=== PATIENT | male | born 1960 | race Caucasian/White ===

== ENCOUNTER 2017-08-29 08:00 | Inpatient (IN) | payer OTHER ==
[2017-08-23 12:15] VITALS: BMI 28.2
[2017-08-29] MEDS ORDERED: CEFAZOLIN 2 GM in DEXTROSE 5%-WATER - 100 ML IVPB ONE (10:08)
[2017-08-29] MEDS ORDERED: VANCOMYCIN 1,000 MG in DEXTROSE 5%-WATER - 250 ML IVPB ONE (10:08)
[2017-08-29] MEDS ORDERED: CELECOXIB 200 MG CAPSULE PO ONE (10:13)
[2017-08-29] MEDS ORDERED: oxyCODONE HCL 10 MG SUSTAINED ACTING TABLET PO ONE (10:13)
[2017-08-29] MEDS ORDERED: ROPIVICAINE 0.2%/MORPH PF/KETOROLAC - 51ML DISP.SYRINGE IA ONE ×2 (11:09→15:13)
[2017-08-29] MEDS ORDERED: VANCOMYCIN 1,000 MG VIAL (RESTRICTED TO ID ONLY) ONE ×2 (11:09→12:06)
[2017-08-29] MEDS ORDERED: MIDAZOLAM HCL 2 MG/2 ML SINGLE DOSE VIAL ONE (11:23)
[2017-08-29] MEDS ORDERED: PROPOFOL 20 ML ONE ×7 (11:34→14:57)
[2017-08-29] MEDS ORDERED: ceFAZolin SODIUM 1 GM VIAL ONE ×2 (11:48→13:58)
[2017-08-29] MEDS ORDERED: TRANEXAMIC ACID 1000 MG/10 ML VIAL ONE ×2 (11:54→14:44)
[2017-08-29] MEDS ORDERED: DEXAMETHASONE SOD PHOSPHATE 4 MG/1 ML VIAL ONE (12:11)
[2017-08-29] MEDS ORDERED: ONDANSETRON 4 MG/2 ML VIAL ONE (12:11)
[2017-08-29] MEDS ORDERED: ePHEDrine SULFATE 50 MG/1 ML AMPULE ONE (12:30)
[2017-08-29 13:43] LABS: HIV 1 & 2 AB NEGATIVE; HIV 1 AGp24 NEGATIVE
[2017-08-29] MEDS ORDERED: VANCOMYCIN 1,000 MG VIAL (RESTRICTED TO ID ONLY) IVPB ONE (14:23)
[2017-08-29] MEDS ORDERED: GUM MASTIC/STORAX/MSAL/ALCOHOL 1 DRP DROPSBTL MC ONE (14:29)
[2017-08-29] MEDS ORDERED: ONDANSETRON 4 MG/2 ML VIAL IVPUSH PRN ×2 (15:20→17:27)
[2017-08-29] MEDS ORDERED: oxyCODONE HCL 5 MG TABLET PO PRN (15:20)
[2017-08-29] MEDS ORDERED: LACTATED RINGERS SOLUTION 1,000 ML IV SCH ×2 (15:30→17:30)
[2017-08-29] MEDS ORDERED: ACETAMINOPHEN 325 MG TABLET (FP) ONE (15:38)
[2017-08-29] MEDS ORDERED: ACETAMINOPHEN 325 MG TABLET (FP) PO ONE (15:55)
--- NOTE | 2017-08-29 17:25 | OP ---
Operative Note - Note: Operative Date: 08/29/17 Pre-Operative Diagnosis: Right hip DJD Operation: Right total hip replacement via Direct Superior approach Implants: [place]. Cup - Trident, 58mm. Poly - 32mm, neutral. Stem - Accolade II, #5, 132 degree. Head - Biolox, 32mm, -4mm Post-Operative Diagnosis: Same as Pre-op Surgeon: Yemi Fowler Regulatory Intern: Nathan Fowler Anesthesiologist/COMMERCIAL RELATIONSHIP MANAGER: Ana Borden Anesthesia: Spinal Specimens Removed: Right femoral head Estimated Blood Loss (mls): 200 Operative Report Dictated: Yes
[2017-08-29] MEDS ORDERED: MAGNESIUM HYDROX 2400MG/30ML ORAL SUSPENSION 30 ML CUP PO PRN (17:27)
[2017-08-29] MEDS ORDERED: VANCOMYCIN 1,500 MG in DEXTROSE 5%-WATER - 500 ML IVPB ONE (17:27)
[2017-08-29] MEDS ORDERED: MAG HYDROX/AL HYDROX/SIMETH 30 ML UNIT-DOSE CUP PO PRN (17:27)
--- NOTE | 2017-08-29 17:27 | PN ---
Progress Note (short form) - Note Progress Note: 57M s/p R ABDI via Direct Superior approach. -Pain control. -DVT PPx: Chemical - ASA EC 81mg PO BID, Mechanical - LEFTY's, SCD's. -Incentive spirometry/pulmonary toilet. -PT/OR/Rehab, OOB. -WBAT RLE. -NO HIP PRECAUTIONS. -Outpatient PT orders: ambulation only; no R hip stretching or strengthening exercises. -f/u TOV. -Diet as tolerated. -d/c planning; OK to d/c home tomorrow with services if patient meets criteria.
[2017-08-29] MEDS ORDERED: CEFAZOLIN 2 GM/D5W 2 GM/50 ML ML IVPB SCH (18:00)
[2017-08-29] MEDS: ACETAMINOPHEN 325 MG TABLET (FP) PO SCH ×2 (19:48→21:21)
[2017-08-29] MEDS: SENNOSIDES/DOCUSATE COMBO (SENNA PLUS) TABLET (UD) PO SCH (21:21)
[2017-08-29] MEDS: CEFAZOLIN 2 GM/D5W 2 GM/50 ML ML IVPB SCH (21:21)
[2017-08-29] MEDS: ASPIRIN COATED 81 MG TABLET.EC PO SCH (21:21)
[2017-08-29] MEDS: oxyCODONE HCL 10 MG SUSTAINED ACTING TABLET PO SCH (21:22)
[2017-08-29] MEDS ORDERED: ASPIRIN 325 MG TABLET PO SCH (22:00)
[2017-08-30] MEDS ORDERED: VANCOMYCIN 1,500 MG in DEXTROSE 5%-WATER - 500 ML IVPB ONE (02:00)
[2017-08-30] MEDS: ACETAMINOPHEN 325 MG TABLET (FP) PO SCH ×4 (04:55→21:58)
[2017-08-30] MEDS: CEFAZOLIN 2 GM/D5W 2 GM/50 ML ML IVPB SCH (05:04)
[2017-08-30] MEDS: oxyCODONE HCL 5 MG TABLET PO PRN ×4 (07:55→22:24)
[2017-08-30 08:56] LABS: ANION GAP 4 (8-16); CALCIUM 9.6 mg/dl (8.4-10.2); CO2 23 mmol/L (22-28); GLUCOSE,RANDOM 116 mg/dl (74-106)
[2017-08-30 08:59] LABS: MCH 29.5 pg (25.7-33.7); MEAN CELL VOLUME 89.4 fl (80-96); MEAN PLT VOLUME 9.5 fl (7.5-11.1); PLATELET COUNT 156 K/MM3 (134-434); RDW 11.7 % (11.9-15.9); WHITE BLOOD COUNT 14.6 K/mm3 (4.0-10.8)
[2017-08-30] MEDS: PANTOPRAZOLE 40 MG TABLET (FP) PO SCH (09:21)
[2017-08-30] MEDS: LISINOPRIL 20 MG TABLET (FP) PO SCH (09:21)
[2017-08-30] MEDS: SENNOSIDES/DOCUSATE COMBO (SENNA PLUS) TABLET (UD) PO SCH ×2 (09:21→21:58)
[2017-08-30] MEDS: MULTIVITAMINS (DAILY MVI) TABLET (FP) PO SCH (09:21)
[2017-08-30] MEDS: ASPIRIN COATED 81 MG TABLET.EC PO SCH ×2 (09:21→21:58)
[2017-08-30] MEDS: oxyCODONE HCL 10 MG SUSTAINED ACTING TABLET PO SCH ×2 (09:23→21:58)
[2017-08-30] MEDS ORDERED: SODIUM CHLORIDE 500 ML IV STA (10:00)
--- NOTE | 2017-08-30 11:18 | PN ---
Progress Note (short form) - Note Progress Note: 57M POD1 s/p right THR under spinal anesthetic with peripheral nerve blocks for pain control. Pt is doing well, reports that his pain is well controlled. Pt denies any anesthetic complications. Sensory and motor function intact in bilateral lower extremities.
--- NOTE | 2017-08-30 13:30 | PN ---
Physical Exam: SUBJECTIVE: Patient seen and examined, reports minimal pain to the right lower extremity OBJECTIVE: patient is a 57 y/o male with a past medical history of hypertension and osteoarthritis. Patient is s/p right THR, POD #1, Dr Fowler Vital Signs Temperature 97.7 F 08/30/17 09:00 Pulse Rate 67 08/30/17 09:00 Respiratory Rate 18 08/30/17 09:00 Blood Pressure 90/64 08/30/17 09:00 O2 Sat by Pulse Oximetry (%) 94 L 08/30/17 09:00 GENERAL: The patient is awake, alert, and fully oriented, in no acute distress. HEAD: Normal with no signs of trauma. EYES: PERRL, extraocular movements intact, sclera anicteric, conjunctiva clear. No ptosis. ENT: Ears normal, nares patent, oropharynx clear without exudates, moist mucous membranes. NECK: Trachea midline, full range of motion, supple. LUNGS: Breath sounds equal, clear to auscultation bilaterally, no wheezes, no crackles, no accessory muscle use. HEART: Regular rate and rhythm, S1, S2 without murmur, rub or gallop. ABDOMEN: Soft, nontender, nondistended, normoactive bowel sounds, no guarding, no rebound, no hepatosplenomegaly, no masses. EXTREMITIES: 2+ pulses, warm, well-perfused, no edema. RIGHT LOWER EXTREMITY: dressing cdi, scd/dimitri less than 3 second capillary refill , + 3 pedal pulse NEUROLOGICAL: Cranial nerves II through XII grossly intact. Normal speech, gait not observed. PSYCH: Normal mood, normal affect. SKIN: Warm, dry, normal turgor, no rashes or lesions noted Laboratory Results - last 24 hr 08/29/17 08/29/17 08/29/17 10:38 11:45 13:36 WBC RBC Hgb Hct MCV MCH MCHC RDW Plt Count MPV Sodium Potassium Chloride Carbon Dioxide Anion Gap BUN Creatinine Random Glucose Calcium HIV 1&2 Antibody Screen Negative HIV P24 Antigen Negative Blood Type O POSITIVE O POSITIVE Antibody Screen Negative 08/30/17 08/30/17 07:30 07:30 WBC 14.6 H RBC 4.07 Hgb 12.0 Hct 36.4 MCV 89.4 MCH 29.5 MCHC 33.0 RDW 11.7 L Plt Count 156 MPV 9.5 Sodium 132 L Potassium 5.9 H Chloride 105 Carbon Dioxide 23 Anion Gap 4 L BUN 19 H Creatinine 1.0 Random Glucose 116 H Calcium 9.6 HIV 1&2 Antibody Screen HIV P24 Antigen Blood Type Antibody Screen Active Medications Generic Name Dose Route Start Last Admin Trade Name Clare PRN Reason Stop Dose Admin Acetaminophen 650 mg 08/29/17 16:00 08/30/17 09:21 Tylenol - PO 09/01/17 15:59 650 mg Q6H PHU Administration Al Hydroxide/Mg Hydroxide 30 ml 08/29/17 17:27 Mylanta Oral Suspension - PO Q4H PRN DYSPEPSIA Aspirin 81 mg 08/29/17 22:00 08/30/17 09:21 Ecotrin - PO 81 mg BID PHU Administration Lisinopril 20 mg 08/30/17 10:00 08/30/17 09:21 Prinivil PO 20 mg DAILY PHU Administration Magnesium Hydroxide 30 ml 08/29/17 17:27 Milk Of Magnesia - PO PRN PRN CONSTIPATION Multivitamins/Minerals/Vitamin C 1 tab 08/30/17 10:00 08/30/17 09:21 Tab-A-Vit - PO 1 tab DAILY PHU Administration Ondansetron HCl 4 mg 08/29/17 17:27 Zofran Injection IVPUSH Q6H PRN NAUSEA Oxycodone HCl 5 mg 08/29/17 15:20 08/30/17 01:16 Roxicodone - PO 5 mg Q3H PRN Administration PAIN LEVEL 1-5 Oxycodone HCl 10 mg 08/29/17 15:20 08/30/17 07:55 Roxicodone - PO 10 mg Q3H PRN Administration PAIN LEVEL 6-10 Oxycodone HCl 10 mg 08/29/17 22:00 08/30/17 09:23 Oxycontin - PO 09/01/17 15:21 10 mg BID PHU Administration Pantoprazole Sodium 40 mg 08/30/17 10:00 08/30/17 09:21 Protonix - PO 40 mg DAILY PHU Administration Senna/Docusate Sodium 1 tablet 08/29/17 22:00 08/30/17 09:21 Pericolace - PO 1 tablet BID PHU Administration ASSESSMENT/PLAN: 1) MS s/p right THR - daily physical therapy - prn pain medication - incentive spiromoter 2) cardiovascular hypertension -hold lisinopril, b/p is labile f/e/n hyperkalemia - potassium elevated, repeat bmp [id number] low sodium diet dispo: requires inpatient admission Visit type - Case Type Case Type: Scheduled Admission - Emergency Emergency Visit: No - New patient This patient is new to me today: No - Critical Care Critical Care patient: No
[2017-08-30 16:46] LABS: ANION GAP 8 (8-16); CALCIUM 9.4 mg/dl (8.4-10.2); CO2 23 mmol/L (22-28); GLUCOSE,RANDOM 120 mg/dl (74-106)
[2017-08-31] MEDS: ACETAMINOPHEN 325 MG TABLET (FP) PO SCH ×2 (06:38→10:26)
[2017-08-31] MEDS: oxyCODONE HCL 5 MG TABLET PO PRN ×2 (08:06→14:05)
[2017-08-31 08:42] LABS: MCH 28.1 pg (25.7-33.7); MCHC 31.5 g/dl (32.0-35.9); MEAN CELL VOLUME 89.5 fl (80-96); MEAN PLT VOLUME 9.9 fl (7.5-11.1); PLATELET COUNT 145 K/MM3 (134-434); WHITE BLOOD COUNT 13.5 K/mm3 (4.0-10.8)
[2017-08-31] MEDS: oxyCODONE HCL 10 MG SUSTAINED ACTING TABLET PO SCH (10:26)
[2017-08-31] MEDS: SENNOSIDES/DOCUSATE COMBO (SENNA PLUS) TABLET (UD) PO SCH (10:27)
[2017-08-31] MEDS: LISINOPRIL 20 MG TABLET (FP) PO SCH (10:27)
[2017-08-31] MEDS: ASPIRIN COATED 81 MG TABLET.EC PO SCH (10:27)
[2017-08-31] MEDS: PANTOPRAZOLE 40 MG TABLET (FP) PO SCH (10:27)
[2017-08-31] MEDS: MULTIVITAMINS (DAILY MVI) TABLET (FP) PO SCH (10:27)
--- NOTE | 2017-08-31 13:02 | DS ---
Physical Exam: SUBJECTIVE: Patient seen and examined OBJECTIVE: Vital Signs Temperature 98.3 F 08/31/17 08:09 Pulse Rate 71 08/31/17 08:09 Respiratory Rate 18 08/31/17 09:00 Blood Pressure 110/68 08/31/17 08:09 O2 Sat by Pulse Oximetry (%) 99 08/31/17 09:00 PHYSICAL EXAM GENERAL: The patient is awake, alert, and fully oriented, in no acute distress. HEAD: Normal with no signs of trauma. EYES: PERRL, extraocular movements intact, sclera anicteric, conjunctiva clear. ENT: Ears normal, nares patent, oropharynx clear without exudates, moist mucous membranes. NECK: Trachea midline, full range of motion, supple. LUNGS: Breath sounds equal, clear to auscultation bilaterally, no wheezes, no crackles, no accessory muscle use. HEART: Regular rate and rhythm, S1, S2 without murmur, rub or gallop. ABDOMEN: Soft, nontender, nondistended, normoactive bowel sounds, no guarding, no rebound, no hepatosplenomegaly, no masses. EXTREMITIES: 2+ pulses, warm, well-perfused, no edema. NEUROLOGICAL: Cranial nerves II through XII grossly intact. Normal speech, gait not observed. PSYCH: Normal mood, normal affect. SKIN: Warm, dry, normal turgor, no rashes or lesions noted. LABS CBC,CMP WBC 13.5 K/mm3 (4.0-10.8) H 08/31/17 07:00 RBC 3.77 M/mm3 (4.00-5.60) L 08/31/17 07:00 Hgb 10.6 GM/dl (11.7-16.9) L D 08/31/17 07:00 Hct 33.8 % (35.4-49) L 08/31/17 07:00 MCV 89.5 fl (80-96) 08/31/17 07:00 MCH 28.1 pg (25.7-33.7) 08/31/17 07:00 MCHC 31.5 g/dl (32.0-35.9) L 08/31/17 07:00 RDW 12.0 % (11.9-15.9) 08/31/17 07:00 Plt Count 145 K/MM3 (134-434) 08/31/17 07:00 MPV 9.9 fl (7.5-11.1) 08/31/17 07:00 Sodium 136 mmol/L (136-145) 08/30/17 15:55 Potassium 4.6 mmol/L (3.5-5.1) D 08/30/17 15:55 Chloride 105 mmol/L (98-107) 08/30/17 15:55 Carbon Dioxide 23 mmol/L (22-28) 08/30/17 15:55 Anion Gap 8 (8-16) 08/30/17 15:55 BUN 21 mg/dl (7-18) H 08/30/17 15:55 Creatinine 1.0 mg/dl (0.6-1.3) 08/30/17 15:55 Random Glucose 120 mg/dl (74-106) H 08/30/17 15:55 Calcium 9.4 mg/dl (8.4-10.2) 08/30/17 15:55 HOSPITAL COURSE: Date of Admission:08/29/17 Date of Discharge: 08/31/17 The patient was admitted to the Med-Surg Unit after an elective repair of their (problem). Now, s/p ( procedure ). The day of surgery, the patient ambulated the hallways with assistance. Narcotic and non-narcotic pain management control was achieved with an oral and IV approach. POD #1, the surgical drain was removed fully intact and without incident. An xray was obtained and confirmed hardware placement at (level of ), no fractures or dislocations. Oliva-operative IV ABX were administered. DVT prophylaxis was achieved with SCDs and early ambulation. The patient ambulated with Physical Therapy and no services were recommended upon discharge. Narcotic scripts and or muscle relaxants were checked with [facility] ADULT SOCIAL WORK SPECIALIST prior to escibe. The discharge instructions and an oral pain management plan were reviewed with the patient. All questions answered. Above plan discussed with Dr. Conrad and agreed. Minutes to complete discharge: 45
--- NOTE | 2017-08-31 13:12 | PN ---
Progress Note (short form) - Note Progress Note: 57M doing well s/p R ABDI POD #2. Pain well controlled. No acute events overnight. Pt. denies overnight history of chest pain/shortness of breath/nausea/vomiting/ chills/sweats. (+) Void; (+) Flatus; (+) Bowel movement. (+) Walked in hallway. Labs, vital signs reviewed. PE: AAO x 3, NAD. R Hip: Dressing C/D/I. NVI distally. 57M doing well s/p R ABDI POD #2. -Pain control. -DVT PPx: Chemical - ASA EC 81mg PO BID, Mechanical - LEFTY's, SCD's. -Incentive spirometry/pulmonary toilet. -PT/OR/Rehab, OOB. -WBAT RLE. -NO HIP PRECAUTIONS. -Outpatient PT orders: ambulation only; no R hip stretching or strengthening exercises. -Diet as tolerated. -d/c planning.
[2017-08-31 14:49] VITALS: BP 106/56; PULSE 66; TEMP 98
--- NOTE | 2017-09-03 10:27 | PATH ---
Surgical Pathology Report Patient Name: REYNOLD ARCOS Med. Rec. #: [id number] /Age/Gender: 1960 (Age: 57) / M Account: [id number] Location: [facility] Taken: 08/30/2017 Received: 08/30/2017 Reported: 09/03/2017 Physicians: Nathan Fowler M.D. Specimen(s) Received RIGHT FEMORAL HEAD Clinical History Right hip osteoarthritis Final Diagnosis BONE, RIGHT FEMORAL HEAD, REPLACEMENT: DEGENERATIVE JOINT DISEASE. Electronically Signed Miguel Chew M.D. Gross Description Received in formalin, labeled "right femoral head," is a 5.3 x 5.3 x 4.0 cm. femoral head with a 1 cm in length portion of femoral neck attached. The margin of resection is smooth. No areas of eburnation are identified. The articular surface is bill-yellow and focally granular with multifocal defects. The underlying trabecular bone is yellow and hard. A u.s. representative section is submitted in one cassette, following decalcification. 08/31/201708/31/2017
== END 2017-08-31 14:09 | disposition home health service (06) | DRG 301 ==
LOC: FM/S 09:12
PROVIDERS: ADMIT Orthopaedic Surgery Adult Reconstructive Orthopaedic Surgery; ATTEND Orthopaedic Surgery Adult Reconstructive Orthopaedic Surgery
PROC: 0SR904Z Replacement of Right Hip Joint with Ceramic on Polyethylene Synthetic Substitute, Open Approach (ICD-10-PCS; principal; 2017-08-29 11:30)
DX: M16.11 Unilateral primary osteoarthritis, right hip (principal); I10 Essential (primary) hypertension; E87.5 Hyperkalemia
CPT/HCPCS: 36415; 73502-TC-RT; 80048; 85027; 86850; 86900; 86901; 87389; 88304-TC; 88311-TC; 94010; 94760; 97116-GP; 97161-GP

== ENCOUNTER 2018-10-28 07:11 | Inpatient (IN) | payer OTHER ==
[2018-10-28] MEDS ORDERED: MIDAZOLAM HCL 2 MG/2 ML SINGLE DOSE VIAL ONE (07:48)
[2018-10-28] MEDS ORDERED: fentaNYL CITRATE 250 MCG/5 ML VIAL ONE ×2 (07:49→08:34)
[2018-10-28] MEDS ORDERED: PROPOFOL 20 ML ONE ×11 (07:49→10:48)
[2018-10-28] MEDS ORDERED: LIDOCAINE HCL/PF 2% SDV 5ML VIAL ONE (07:49)
[2018-10-28] MEDS ORDERED: DEXAMETHASONE SOD PHOSPHATE 4 MG/1 ML VIAL ONE (07:49)
[2018-10-28] MEDS ORDERED: SEVOFLURANE 250 ML BTL ONE (08:09)
[2018-10-28] MEDS ORDERED: SUCCINYLCHOLINE CHLORIDE 200 MG/10 ML VIAL ONE (08:10)
[2018-10-28] MEDS ORDERED: BUPIVACAINE LIPOSOME/PF (EXPAREL) 266 MG/20 ML VIAL NR ONE (08:15)
[2018-10-28] MEDS ORDERED: ceFAZolin SODIUM 1 GM VIAL ONE ×2 (08:23→11:10)
[2018-10-28] MEDS ORDERED: VANCOMYCIN 1,000 MG VIAL (RESTRICTED TO ID ONLY) ONE (08:24)
[2018-10-28] MEDS ORDERED: ROCURONIUM BROMIDE 50 MG/5 ML VIAL ONE (08:27)
[2018-10-28] MEDS ORDERED: ceFAZolin SODIUM 1 GM VIAL IVPB ONE (08:30)
[2018-10-28] MEDS ORDERED: VANCOMYCIN 1,000 MG VIAL (RESTRICTED TO ID ONLY) IVPB ONE (08:45)
[2018-10-28] MEDS ORDERED: ePHEDrine SULFATE 50 MG/1 ML AMPULE ONE (09:14)
[2018-10-28] MEDS ORDERED: TRANEXAMIC ACID 1000 MG/10 ML VIAL ONE (09:52)
[2018-10-28] MEDS ORDERED: BUPIVACAINE LIPOSOME/PF (EXPAREL) 266 MG/20 ML VIAL IJ ONE (09:52)
[2018-10-28] MEDS ORDERED: BUPIVACAINE HCL/PF 0.25% (2.5MG/ML) 10 ML VIAL IJ ONE (09:52)
[2018-10-28] MEDS ORDERED: THROMBIN (BOVINE) 5,000 UNIT VIAL TP ONE (09:52)
[2018-10-28] MEDS ORDERED: ONDANSETRON 4 MG/2 ML VIAL IVPUSH PRN ×3 (10:57→12:21)
[2018-10-28] MEDS ORDERED: PROMETHAZINE HCL 25 MG/1 ML VIAL IVPUSH PRN (10:57)
[2018-10-28] MEDS ORDERED: DEXAMETHASONE SOD PHOSPHATE 4 MG/1 ML VIAL IVPUSH ONE (10:58)
[2018-10-28] MEDS ORDERED: PROMETHAZINE HCL 25 MG/1 ML VIAL IVPB PRN (10:58)
--- NOTE | 2018-10-28 10:59 | PN ---
Progress Note (short form) - Note Progress Note: 58M s/p L5 Cortes laminectomy; S1 laminectomy; L4 laminotomy; L5-S1 discectomy; L5 -S1 PLIF; insertion biomechanical device L5-S1; L5-S1 posterior arthrodesis; L5- S1 posterior instrumentation POD #0. -Pain control: per anaesthesia team; recommend RESEARCH SOFTWARE ENGINEER; No NSAID's. -DVT PPx: - Mechanical only: LEFTY's, SCD's. -Incentive spirometry q15min. -PT/OT/Rehab, OOB. -WBAT B/L LE. -q4h B/L LE NV checks. -Post-op antibiotics x 2 doses. -NPO until flatus. -f/u AM labs. -f/u drain output. -d/c Saravia catheter when patient ambulating comfortably. -Care per medical hospitalist team. -No bending, lifting more than 5lbs, or twisting x 6 months. -Discharge planning: f/u 11/08/2018 at [facility] [place] office; call for appointment; . -Will follow. Nathan Fowler MD (Orthopaedic Surgery).
--- NOTE | 2018-10-28 11:02 | OP ---
Operative Note - Note: Operative Date: 10/28/18 Pre-Operative Diagnosis: 1. L5-S1 intervertebral disc disorder with associated lower extremity radiculopathy. 2. L5-S1 spinal stenosis with neurogenic claudication. 3. L5-S1 segmental instability Operation: 1. L5 Cortes laminectomy. 2. S1 laminotomy. 3. L4 laminotomy. 4. L5- S1 discectomy. 5. L5-S1 PLIF. 6. Insertion biomechanical device L5-S1. 7. L5- S1 posterior arthrodesis. 8. L5-S1 posterior instrumentation. 9. Bone autograft. 10. Bone allograft. 11. Bone marrow aspiration. 12. Stem cell autograft. 13. Complex wound closure (10cm). Findings: Post-op Diagnosis: 1. L5-S1 intervertebral disc disorder with associated lower extremity radiculopathy 2. L5-S1 spinal stenosis with neurogenic claudication 3. L5-S1 segmental instability 4. L5 spondylolysis Post-Operative Diagnosis: Other Surgeon: Nathan Fowler Custom Shop Worker: Yemi Fowler Anesthesiologist/PALLIATIVE CARE PHYSICIAN: Alec Blake Anesthesia: General Specimens Removed: L5-S1 disc Estimated Blood Loss (mls): 650 Drains & Tubes with Location: 1 x deep HemoVac Blood Volume Replaced (mls): 250 (Cell Saver) Fluid Volume Replaced (mls): 3,000 (Crystalloid) Operative Report Dictated: Yes
[2018-10-28] MEDS ORDERED: ONDANSETRON 4 MG/2 ML VIAL ONE (11:28)
[2018-10-28] MEDS ORDERED: ACETAMINOPHEN 1000 MG/100 ML VIAL (NON FORMULARY) IVPB PRN (12:21)
[2018-10-28] MEDS: ceFAZolin 2 GRAM PREMIX BAG IVPB SCH ×2 (13:04→20:30)
[2018-10-28] MEDS: LACTATED RINGERS SOLUTION 1,000 ML IV SCH (13:30)
--- NOTE | 2018-10-28 13:30 | CONSULT ---
Consult Consult Specialty:: Pulm/CCM Referred by:: Dr. Fowler Reason for Consultation:: Post-op monitoring - History of Present Illness Chief Complaint: s/p spinal surgery History of Present Illness: 58M with history of HTN, L5-S1 intervertebral disc disorder with associated lower extremity radiculopathy, L5-S1 spinal stenosis with neurogenic claudication, L5-S1 segmental instability, presents to the ICU for post operative monitoring POD#0 s/p L5 Cortes laminectomy, S1 laminotomy, L4 laminotomy, L5-S1 discectomy, L5-S1 PLIF, Insertion biomechanical device L5-S1, L5-S1 posterior arthrodesis, L5-S1 posterior instrumentation, Bone autograft, Bone allograft, Bone marrow aspiration, Stem cell autograft, Complex wound closure. Patient states he had a fall at work about 8 years ago which triggered his back symptoms. He has complaints of back pain at this time but is in good spirits and is able to joke around. EBL 650ml, cell saver 250ml, 4000ml IVF, 250ml urine output. - History Source History Provided By: Patient Limitations to Obtaining History: Clinical Condition - Past Medical History Cardio/Vascular: Yes: HTN - Past Surgical History Additional Surgical History: Hip replacement - Alcohol/Substance Use Hx Alcohol Use: Yes (SOCIALLY) - Smoking History Smoking history: Never smoked Have you smoked in the past 12 months: No Home Medications - Allergies Allergies/Adverse Reactions: Allergies Allergy/AdvReac Type Severity Reaction Status Date / Time No Known Drug Allergies Allergy Verified 10/28/18 07:35 - Home Medications Home Medications: Ambulatory Orders Lisinopril 20 mg PO DAILY 08/23/17 Oxycodone HCl/Acetaminophen [Percocet 5-325 mg Tablet] 1 tab PO Q6H PRN #20 tablet MDD 4 08/31/17 Review of Systems - Review of Systems Constitutional: reports: No Symptoms Eyes: reports: No Symptoms HENT: reports: No Symptoms Neck: reports: No Symptoms Cardiovascular: reports: No Symptoms Respiratory: reports: No Symptoms Gastrointestinal: reports: No Symptoms Genitourinary: reports: No Symptoms Musculoskeletal: reports: Back Pain Neurological: reports: No Symptoms Endocrine: reports: No Symptoms Physical Exam Vital Signs: Vital Signs Temperature 97.8 F 10/28/18 12:55 Pulse Rate 65 10/28/18 13:10 Respiratory Rate 14 10/28/18 13:10 Blood Pressure 106/72 10/28/18 13:10 O2 Sat by Pulse Oximetry (%) 97 10/28/18 13:10 Constitutional: Yes: Well Nourished, No Distress Eyes: Yes: Conjunctiva Clear HENT: Yes: Atraumatic, Normocephalic Neck: Yes: Supple, Trachea Midline Cardiovascular: Yes: Regular Rate and Rhythm Respiratory: Yes: CTA Bilaterally Gastrointestinal: Yes: Normal Bowel Sounds, Soft Edema: No Wound/Incision: Yes: Clean/Dry, Other (drain with serosangenous drainage) Neurological: Yes: Alert, Oriented, Cran Nerves II-XII Intact, Other (sensation in tact in upper and lower extremities. Upper extremity strength 5/5. able to move lower extremities but full lower extremity motor exam limited due to pain) . No: Loss of Sensation Assessment/Plan 58M with history of HTN, L5-S1 intervertebral disc disorder with associated lower extremity radiculopathy, L5-S1 spinal stenosis with neurogenic claudication, L5-S1 segmental instability, presents to the ICU for post operative monitoring POD#0 s/p L5 Cortes laminectomy, S1 laminotomy, L4 laminotomy, L5-S1 discectomy, L5-S1 PLIF, Insertion biomechanical device L5-S1, L5-S1 posterior arthrodesis, L5-S1 posterior instrumentation, Bone autograft, Bone allograft, Bone marrow aspiration, Stem cell autograft, Complex wound closure. Problem List: L5-S1 intervertebral disc disorder with associated lower extremity radiculopathy L5-S1 spinal stenosis with neurogenic claudication L5-S1 segmental instability L5 spondylolysis HTN Lumbago Plan: ICU monitoring NPO until has bowel function IVF PT consult-Weight bearing as tolerated Pain control-awaiting dilaudid MASH FILTER CLOTH CHANGER from anesthesia D/C casanova when ambulating incentive spirometry DVT PPx-SCDs monitor drain output Neurovascular checks q4h per surgery Labs in AM CCTime 36 minutes Case discussed with Dr. Ramirez
[2018-10-28] MEDS: HYDROmorphone *PCA* 10MG/50ML DISP.SYRIN PCA SCH (13:46)
--- NOTE | 2018-10-29 00:12 | OP ---
DATE OF OPERATION: DATE OF DICTATION: 10/28/2018 SURGEON: Nathan Fowler MD LUNCHROOM WORKER: Yemi Fowler MD PREOPERATIVE DIAGNOSES: Spinal stenosis at L5-S1 with associated spondylolisthesis, spondylolysis, and segmental instability. POSTOPERATIVE DIAGNOSES: Spinal stenosis at L5-S1 with associated spondylolisthesis, spondylolysis, and segmental instability. OPERATION PERFORMED: 1. Laminectomy, L5. 2. Posterior lumbar interbody fusion, L5-S1 with autologous bone graft. 3. Insertion of cage (that is a biomechanical device). 4. Pedicle screw instrumentation, L5-S1. 5. Posterolateral arthrodesis, L5-S1. 6. Use of bone marrow aspirate concentrate. 7. Use of intraoperative neuromonitoring. ANTIBIOTICS GIVEN: Kefzol 2 g, vancomycin 1 g preoperative; Kefzol 1 g given at the time of seating of the pedicle screws. OPERATION DETAILS: Patient correctly identified, brought into the operating room. Lumbar spine was prepped, draped routinely with window drape with Betadine scrub solution, wiped off with alcohol, DuraPrep applied. The midline spine incision was performed from the tip of L4 to the tip of S1. This gave an exposure through subcutaneous tissue, fat, to the tips of the spinous processes. A subperiosteal dissection was utilized in order to dissect the soft tissue off the bone bed of the spine, the lamina, the facet joints, and the transverse processes, both left- and right-hand side. The ala of the sacrum clearly exposed. Verification of the levels were within anatomical guidelines as well as with lateral fluoroscopic x-ray. The lateral fluoroscopy revealed the presence of a hypolordotic lumbosacral junction. During the dissection, it was clearly noted that there was excessive mobility of the lamina of L1, and a Cortes laminectomy was performed, resecting the entire lamina of L5 with the associated facet joint, inferior component of the facet joints, both left- and right-hand side. This enabled clear decompression and visualization of the theca from L4 right down to S1, exposing the nerve roots clearly at L5 as well as S1 accordingly left- and right-hand side. The approach to the left L5-S1 disk was from the left-hand side, the epidural veins were present with appropriate need for bipolar Bovie. The Bovie enabled easy access to the disk. The disk was resected using the following technique. The disk was entered with matti, sequential shaving from size 6 up to size 12 was performed. At size 12, the firmness of the interbody space was readily appreciated. Shaving the disk material and the endplates enabled the collection of disk material from within the interbody space, freeing as much of the disk material as readily noted. The endplates of L5 and S1 were freed and denuded. All soft tissue denuded off the endplate itself. The bone from the posterior elements was harvested, milled in a [employer] mill, and that bone was packed into the interbody space. Following the interbody space package of bone graft to complete the anterior arthrodesis, a cage measuring size 14 packed with bone graft itself; this is a 13 mm x 22 mm Fortilink spacer, solidly inserted in position. X-ray revealed excellent positioning of this implant. The pedicles of L5-S1 were identified. Using a 4.5 drill bit and anatomical guidelines, verification of the screwing was noted to be under the endplates of L5 and S1 and divergent to provide a clasp-type effect. Once the screws had been tested and found to be completely safe well above the dangerous fluoroscopic stimulation levels of neuromonitoring, the rods were applied to the screw heads, fixed with appropriate caps. The torque device tightened the screws appropriately. The muscle was lifted off the soft tissue elements, packed into the posterior transverse plane with autologous/allograft bone combination, mixed with C43 stem cells harvested from the left posterior ilium. This was done separately through a Jamshidi needle, aspirating 60 mL of marrow. The wounds were thoroughly lavaged. Closure after trimming of muscle for necrotic damaged muscle tissue with fascia -- Muscle 1 Vicryl, subcutaneous 1 and 2-0 Vicryl, skin 3-0 Monocryl with Steri-Strips. Drainage -- One-inch x1. X-rays intraoperatively taken revealed excellent seating of the implants. Sponge counts were well controlled and normal. A 1/8-inch drain was seated subcutaneously and will be removed in approximately 48 hours. OVERALL COMMENT: The operation went well. No issues. MD MANGO [place]/[id number]
[2018-10-29 06:25] LABS: HEMATOCRIT 35.5 % (35.4-49); HEMOGLOBIN 11.7 GM/dL (11.7-16.9); MCHC 32.9 g/dl (32.0-35.9); MEAN CELL VOLUME 91.2 fl (80-96); PLATELET COUNT 155 K/MM3 (134-434); RBC 3.89 M/mm3 (4.00-5.60)
[2018-10-29 06:51] LABS: ANION GAP 5 MMOL/L (8-16); BLOOD UREA NITROGEN 16 mg/dL (7-18); CALCIUM 8.7 mg/dL (8.5-10.1); CHLORIDE 102 mmol/L (98-107); CO2 31 mmol/L (21-32); GLUCOSE,RANDOM 90 mg/dL (74-106); MAGNESIUM 1.6 mg/dL (1.8-2.4); PHOSPHOROUS 4.2 mg/dL (2.5-4.9); POTASSIUM 4.3 mmol/L (3.5-5.1); SODIUM 138 mmol/L (136-145)
[2018-10-29] MEDS: HYDROmorphone *PCA* 10MG/50ML DISP.SYRIN PCA SCH ×2 (08:03→20:44)
--- NOTE | 2018-10-29 08:03 | PN ---
Physical Exam: SUBJECTIVE: Patient seen and examined at bed side this morning. 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 Since then he has had chronic back pain. Had been on pain medications. Now came to [facility] for an elective back surgery. This morning, he states his pain is well controlled with AREA LOSS PREVENTION MANAGER. Passed flatus last night. No numbness, tingling or any neurological symptoms. Denies chest pain, sob, cough, palpitation, abdominal pain, nausea or vomiting. No acute overnight events. 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 OBJECTIVE: Vital Signs Period Temp Pulse Resp BP Sys/Guevara Pulse Ox Last 24 Hr 97.5 F-98.5 F 60-97 9-18 92-127/66-97 95-100 GENERAL: Middle aged male, lying in bed comfortably, is awake, alert, and fully oriented, in no acute distress. Casanova, LYLE drain in place. EYES: EOM Intact, no pallor or icterus. ENT: Ears normal, moist mucous membranes. NECK: Supple, no JVD LUNGS: B/L clear lungs, no added sounds. HEART: Regular rate and rhythm, S1, S2 without murmur. ABDOMEN: Soft, nontender, no organomegaly, BS +. EXTREMITIES: 2+ pulses, warm, well-perfused, no edema. BACK: Dressing applied over the surgical site, LYLE drain in place. NEUROLOGICAL: No facial droop. Normal speech, gait not observed. PSYCH: Normal mood, normal affect. SKIN: Warm, dry, normal turgor, no rashes or lesions noted Laboratory Results - last 24 hr 10/28/18 10/29/18 10/29/18 07:25 05:30 05:30 WBC 14.0 H RBC 3.89 L Hgb 11.7 Hct 35.5 MCV 91.2 MCH 30.0 MCHC 32.9 RDW 12.0 Plt Count 155 MPV 9.0 Sodium 138 Potassium 4.3 Chloride 102 Carbon Dioxide 31 Anion Gap 5 L BUN 16 Creatinine 1.0 Creat Clearance w eGFR > 60 Random Glucose 90 Calcium 8.7 Phosphorus 4.2 Magnesium 1.6 L Blood Type O POSITIVE Antibody Screen Negative Active Medications Generic Name Dose Route Start Last Admin Trade Name Freq PRN Reason Stop Dose Admin Acetaminophen 1,000 mg 10/28/18 12:21 10/28/18 13:02 Ofirmev Injection - IVPB 10/29/18 12:20 1,000 mg PRN PRN Administration If narcotics are ineffective Fentanyl 50 mcg 10/28/18 10:57 10/28/18 13:18 Sublimaze Injection - IVPUSH 50 mcg [id number] PRN Administration PAIN-PACU ORDER X 4 DOSES ONLY Hydromorphone HCl 10 mg 10/28/18 11:00 10/28/18 13:46 Dilaudid Duty Engineer - AREA LOSS PREVENTION MANAGER 11/04/18 10:58 10 mg AREA LOSS PREVENTION MANAGER PHU Administration Protocol Lactated Ringer's 1,000 mls @ 125 mls/hr 10/28/18 12:30 10/28/18 13:30 Lactated Ringers Solution IV 125 mls/hr ASDIR PHU Administration Lisinopril 20 mg 10/29/18 10:00 Prinivil PO DAILY PHU Magnesium Sulfate 1 gm 10/29/18 07:35 Magnesium Sulfate IVPB 10/29/18 07:36 ONCE ONE Ondansetron HCl 4 mg 10/28/18 10:57 Zofran Injection IVPUSH Q6H PRN NAUSEA AND/OR VOMITING Ondansetron HCl 4 mg 10/28/18 10:58 Zofran Injection IVPUSH Q4H PRN NAUSEA AND/OR VOMITING Ondansetron HCl 4 mg 10/28/18 12:21 Zofran Injection IVPUSH Q6H PRN NAUSEA AND/OR VOMITING Promethazine HCl 12.5 mg 10/28/18 10:58 Phenergan Injection - IVPB Q6H PRN NAUSEA AND/OR VOMITING ASSESSMENT/PLAN: Patient is a 58 year old male with past medical history of hypertension and BPH presented to the ED for an elective back surgery for spinal stenosis. # Spinal stenosis with radiculopathy s/p laminectomies and dissectomy- POD 1 s/p L5 Cortes laminectomy. S1 laminotomy. L4 laminotomy. L5-S1 discectomy. L5- S1 PLIF. Insertion biomechanical device L5-S1. L5-S1 posterior arthrodesis. L5-S1 posterior instrumentation. Bone autograft. Bone allograft. Bone marrow aspiration. Stem cell autograft. Complex wound closure (10cm). Admitted in ICU for observation of post operative complications. EBL 650 ml, 250 cell saver, fluid volume replaced 2L Output today: Casanova: 1000 ml; LYLE drain: Patient doing well, pain well controlled with AREA LOSS PREVENTION MANAGER. Seen by Anesthesia today, plan is to continue AREA LOSS PREVENTION MANAGER until tomorrow Continue IV LR @ 125 mls/hr Zofran PRN for nausea (will order an EKG to check the qtc) Completed Cefazolin 4 doses PT OOB to chair D/c casanova once OOB # Hypertension Continue lisinopril 20mg # FEN IV LR @ 125 mls.hr Electrolytes: Hypomagnesemia, repleted NPO, advance to clears. # Prophylaxis For DVT: SCD's For GI: Not indicated # Code Status: Full Code # Dispo: Continue to monitor in ICU. Illness, Investigation and plan of care explained to the patient. He verbalized understanding. Case discussed with Dr. Cruz. Visit type - Emergency Visit Emergency Visit: Yes ED Registration Date: 10/28/18 Care time: The patient presented to the Emergency Department on the above date and was hospitalized for further evaluation of their emergent condition. - New Patient This patient is new to me today: Yes Date on this admission: 10/29/18 - Critical Care Critical Care patient: Yes Total Critical Care Time (in minutes): 35 Critical Care Statement: The care of this patient involved high complexity decision making to prevent further life threatening deterioration of the patient 's condition and/or to evaluate & treat vital organ system(s) failure or risk of failure. - Discharge Referral Referred to [facility] Med P.C.: No
--- NOTE | 2018-10-29 08:04 | PN ---
Progress Note (short form) - Note Progress Note: POD #1 - s/p L5-S1 PLIF under GA with dilaudid ASSOCIATE APPLICATION DEVELOPER for postop pain management. VSS. Pt. doing well, resting comfortably in bed. Pain score 5/10 at rest, higher when moving around. States ASSOCIATE APPLICATION DEVELOPER has been helping. Will continue ASSOCIATE APPLICATION DEVELOPER on present settings and followup tomorrow.
[2018-10-29] MEDS ORDERED: MAGNESIUM SULF 50% (8.12 MEQ/2 ML-1 GM VIAL) IVPB ONE ×2 (08:15→08:45)
--- NOTE | 2018-10-29 11:43 | PN ---
Teaching Attending Note Name of Resident: Sugey Gonzalez ATTENDING PHYSICIAN STATEMENT I saw and evaluated the patient. I reviewed the resident's note and discussed the case with the resident. I agree with the resident's findings and plan as documented. SUBJECTIVE: Pain is controlled with OVERHEAD IRRIGATOR. (+) flatus last night, none today. OBJECTIVE: Vital Signs Period Temp Pulse Resp BP Sys/Guevara Pulse Ox Last 24 Hr 97.5 F-98.5 F 60-97 9-20 92-127/66-97 94-100 HEART: S1S2, RRR LUNGS: Clear ABDOMEN: Soft, non-tender, non-distended, hypoactive BS EXTREMITIES: No edema Laboratory Results - last 24 hr 10/29/18 10/29/18 05:30 05:30 WBC 14.0 H RBC 3.89 L Hgb 11.7 Hct 35.5 MCV 91.2 MCH 30.0 MCHC 32.9 RDW 12.0 Plt Count 155 MPV 9.0 Sodium 138 Potassium 4.3 Chloride 102 Carbon Dioxide 31 Anion Gap 5 L BUN 16 Creatinine 1.0 Creat Clearance w eGFR > 60 Random Glucose 90 Calcium 8.7 Phosphorus 4.2 Magnesium 1.6 L Current Medications Generic Name Dose Route Start Last Admin Trade Name Freq PRN Reason Stop Dose Admin Acetaminophen 1,000 mg 10/28/18 12:21 10/28/18 13:02 Ofirmev Injection - IVPB 10/29/18 12:20 1,000 mg PRN PRN Administration If narcotics are ineffective Fentanyl 50 mcg 10/28/18 10:57 10/28/18 13:18 Sublimaze Injection - IVPUSH 50 mcg [id number] PRN Administration PAIN-PACU ORDER X 4 DOSES ONLY Hydromorphone HCl 10 mg 10/28/18 11:00 10/29/18 08:03 Dilaudid Assigner - OVERHEAD IRRIGATOR 11/04/18 10:58 10 mg OVERHEAD IRRIGATOR PHU Administration Protocol Lactated Ringer's 1,000 mls @ 125 mls/hr 10/28/18 12:30 10/28/18 13:30 Lactated Ringers Solution IV 125 mls/hr ASDIR PHU Administration Lisinopril 20 mg 10/29/18 10:00 Prinivil PO DAILY PHU Ondansetron HCl 4 mg 10/28/18 10:57 Zofran Injection IVPUSH Q6H PRN NAUSEA AND/OR VOMITING Ondansetron HCl 4 mg 10/28/18 10:58 Zofran Injection IVPUSH Q4H PRN NAUSEA AND/OR VOMITING Ondansetron HCl 4 mg 10/28/18 12:21 Zofran Injection IVPUSH Q6H PRN NAUSEA AND/OR VOMITING Promethazine HCl 12.5 mg 10/28/18 10:58 Phenergan Injection - IVPB Q6H PRN NAUSEA AND/OR VOMITING ASSESSMENT AND PLAN: This is a 58 year old man with a history of HTN, lumbar disc disease with radiculopathy, lumbar spinal stenosis with neurogenic claudication who was admitted for lumbar spine surgery. 1. Lumbar disc disease with spinal stenosis, neurogenic claudication, radiculopathy - s/p L5 Cortes laminectomy; S1 laminotomy; L4 laminotomy; L5-S1 discectomy; L5 -S1 PLIF; insertion biomechanical device L5-S1; L5-S1 posterior arthrodesis; L5- S1 posterior instrumentation; bone autograft; bone allograft; bone marrow aspiration; stem cell autograft; complex wound closure (10cm) yesterday - Continue Dilaudid OVERHEAD IRRIGATOR for pain control - Physical therapy - Incentive spirometer - Maintain NPO until adequate flatus - Maintain Saravia until ambulating 2. HTN - BP controlled with lisinopril 3. Hypomagnesemia - Magnesium sulfate given
[2018-10-29] MEDS ORDERED: DOCUSATE NA 100 MG/10 ML UNIT-DOSE CUPS PO PRN (11:51)
--- NOTE | 2018-10-29 12:33 | PN ---
Teaching Attending Note Name of Resident: Rosie Tejeda ATTENDING PHYSICIAN STATEMENT I saw and evaluated the patient. I reviewed the resident's note and discussed the case with the resident. I agree with the resident's findings and plan as documented. SUBJECTIVE: Pt seen and examined in the ICU. Pain relatively controlled. No nausea. No fevers or chills. No shortness of breath or chest pain. Had brief syncopal episode while getting up with nursing from chair. OBJECTIVE: Vital Signs Period Temp Pulse Resp BP Sys/Guevara Pulse Ox Last 24 Hr 97.8 F-98.5 F 60-97 9-20 92-110/66-92 94-100 Intake & Output 10/26/18 10/27/18 10/28/18 10/29/18 23:59 23:59 23:59 23:59 Intake Total 4500 1425 Output Total 1050 1000 Balance 3450 425 Weight 96.706 kg 98.248 kg Gen: NAD at rest Heart: RRR Lung: decreased breath sounds at the bases Abd: soft, nontender Ext: no edema CBC, BMP 10/29/18 05:30 10/29/18 05:30 Active Medications Docusate Sodium (Colace Liquid -) 100 mg PO DAILY PRN PRN Reason: CONSTIPATION Fentanyl (Sublimaze Injection -) 50 mcg IVPUSH [id number] PRN PRN Reason: PAIN-PACU ORDER X 4 DOSES ONLY Last Admin: 10/28/18 13:18 Dose: 50 mcg Hydromorphone HCl (Dilaudid Senior Principal -) 10 mg MED ADMIN MED ADMIN [facility]; Protocol Stop: 11/04/18 10:58 Last Admin: 10/29/18 08:03 Dose: 10 mg Lactated Ringer's (Lactated Ringers Solution) 1,000 mls @ 125 mls/hr IV ASDIR PHU Last Admin: 10/28/18 13:30 Dose: 125 mls/hr Lisinopril (Prinivil) 20 mg PO DAILY [facility] Ondansetron HCl (Zofran Injection) 4 mg IVPUSH Q6H PRN PRN Reason: NAUSEA AND/OR VOMITING Ondansetron HCl (Zofran Injection) 4 mg IVPUSH Q4H PRN PRN Reason: NAUSEA AND/OR VOMITING Ondansetron HCl (Zofran Injection) 4 mg IVPUSH Q6H PRN PRN Reason: NAUSEA AND/OR VOMITING Promethazine HCl (Phenergan Injection -) 12.5 mg IVPB Q6H PRN PRN Reason: NAUSEA AND/OR VOMITING ASSESSMENT AND PLAN: L5-S1 Spinal Stenosis with Radiculopathy and Neurogenic Claudication s/p L5 Laminectomy/L5-S1 Discectomy/PLIF/Biomechanical Device Insertion/ Instrumentation HTN Syncope likely Orthostatic - pain control - incentive spirometry - IVF - bowel regimen - d/c casanova - rehab/PT - DVT prophylaxis
--- NOTE | 2018-10-29 14:33 | PN ---
Progress Note (short form) - Note Progress Note: SUBJECTIVE Patient seen and examined at the bedside. Reports that his pain is well- controlled on BRIM PRESSER pump. No fever or chest pain. In the afternoon, patient experienced a witnessed syncopal episode immediately after standing up from a chair. OBJECTIVE Vital Signs Temperature 97.9 F 10/29/18 10:00 Pulse Rate 86 10/29/18 13:41 Respiratory Rate 12 10/29/18 13:41 Blood Pressure 100/69 10/29/18 13:41 O2 Sat by Pulse Oximetry (%) 94 L 10/29/18 11:12 General: Awake, alert, and fully oriented, in no acute distress Head: No signs of trauma Eyes: EOMI, sclera anicteric ENT: Dry mucus membranes Neck: Normal ROM, supple Lungs: Lungs clear, Normal breath sounds Cardio: Regular rhythm, S1 and S2 present Abdomen: Soft, nontender. No guarding, no rebound, no masses Extremities: Normal range of motion, Distal pulses present SKIN: Warm, Dry, normal turgor Neurologic: Cranial nerves II through XII grossly intact. Normal speech ASSESSMENT 58yo M with PMH of HTN and spinal stenosis, s/p L5 Cortes laminectomy, S1 laminotomy, L4 laminotomy, L5-S1 discectomy, L5-S1 PLIF, Insertion biomechanical device L5-S1, L5-S1 posterior arthrodesis, L5-S1 posterior instrumentation, Bone autograft, Bone allograft, Bone marrow aspiration, Stem cell autograft, Complex wound closure (10cm). Passed flatus once yesterday. Now POD #1. PLAN POD #1 Neurovascular checks q4h per surgery Monitor drain output D/C casanova when ambulating PT consult-Weight bearing as tolerated Dilaudid BRIM PRESSER for pain control CV Syncopal episode, consistent with orthostatic hypotension History of HTN -on home lisinopril PULM Incentive spirometry FEN LR @125cc/hr Follow electrolytes, replete as needed Advanced to clear liquid diet PPX VTE: SCDs Bowel regimen: docusate #Disposition: Patient safe for transfer to the floor
[2018-10-29] MEDS: LISINOPRIL 20 MG TABLET (FP) PO SCH (16:04)
[2018-10-29] MEDS: LACTATED RINGERS SOLUTION 1,000 ML IV SCH (17:08)
--- NOTE | 2018-10-29 18:01 | PATH ---
Surgical Pathology Report Patient Name: REYNOLD ARCOS [facility]. Rec. #: [id number] /Age/Gender: 1960 (Age: 58) / M Account: [id number] Location: [facility] [employer]ASK[employer] Taken: 10/28/2018 Received: 10/28/2018 Reported: 10/29/2018 Physicians: Nathan Fowler M.D. Specimen(s) Received DISC L5-S1 Clinical History Spondylolisthesis lumbar Final Diagnosis L5-S1 DISC, LAMINECTOMY: BONE AND FIBROCARTILAGINOUS TISSUE WITH DEGENERATIVE CHANGE. Electronically Signed Elio Cole M.D. Gross Description Received in formalin labeled "L5-S1 disc," is a 5.0 x 4.0 x 0.4 cm aggregate of bill fragments of fibrocartilaginous tissue. A enrollment eligibility representative portion is submitted in one cassette. /10/28/2018 saudi10/28/2018
[2018-10-30] MEDS: HYDROmorphone *PCA* 10MG/50ML DISP.SYRIN PCA SCH ×2 (03:35→19:24)
[2018-10-30 06:52] LABS: BASO % 0.5 % (0-2.0); EOS % 0.5 % (0-4.5); HEMATOCRIT 32.9 % (35.4-49); HEMOGLOBIN 11.1 GM/dL (11.7-16.9); MCH 30.2 pg (25.7-33.7); MCHC 33.7 g/dl (32.0-35.9); MEAN CELL VOLUME 89.6 fl (80-96); MEAN PLT VOLUME 9.6 fl (7.5-11.1); MONO % 9.9 % (3.8-10.2); NEUT % 74.1 % (42.8-82.8); PLATELET COUNT 140 K/MM3 (134-434); RBC 3.67 M/mm3 (4.00-5.60); RDW 12.1 % (11.9-15.9); WHITE BLOOD COUNT 13.9 K/mm3 (4.0-10.0)
[2018-10-30 07:15] LABS: ANION GAP 4 MMOL/L (8-16); BLOOD UREA NITROGEN 12 mg/dL (7-18); CHLORIDE 99 mmol/L (98-107); CO2 31 mmol/L (21-32); CREATININE 0.9 mg/dL (0.55-1.3); GLUCOSE,RANDOM 91 mg/dL (74-106); MAGNESIUM 1.9 mg/dL (1.8-2.4); POTASSIUM 4.4 mmol/L (3.5-5.1); SODIUM 134 mmol/L (136-145)
[2018-10-30] MEDS ORDERED: PT OWN MED DRAWER 7, Y5N ONE (10:05)
[2018-10-30] MEDS: LISINOPRIL 20 MG TABLET (FP) PO SCH (10:07)
--- NOTE | 2018-10-30 10:49 | PN ---
Physical Exam: SUBJECTIVE: Patient seen and examined at bedside. No acute events overnight. Pt with pain on the RLE. Denies cp, sob, abd pain, numbness and tingling. OBJECTIVE: Vital Signs Temperature 99.9 F H 10/30/18 10:00 Pulse Rate 65 10/30/18 10:00 Respiratory Rate 12 10/30/18 10:00 Blood Pressure 92/59 L 10/30/18 10:00 O2 Sat by Pulse Oximetry (%) 95 10/29/18 19:46 GENERAL: Middle aged male, lying in bed comfortably, is awake, alert, and fully oriented, in no acute distress. Facial symmetry noted. EYES: EOM Intact, no pallor or icterus. ENT: Ears normal, moist mucous membranes. NECK: Supple, no JVD LUNGS: B/L clear lungs, no added sounds. HEART: Regular rate and rhythm, S1, S2 without murmur. ABDOMEN: Soft, nontender, no organomegaly, BS +. : Casanova catheter in place draining clear yellow urine. EXTREMITIES: 2+ pulses, warm, well-perfused, no edema. BACK: Dressing applied over the surgical site, c/d/i, LYLE drain in place. NEUROLOGICAL: No facial droop. Normal speech. 5/5 muscle strength in b/l UE. 5/ 5 muscle strength in LLE, 4/5 muscle strength in RLE due to pain. SKIN: Warm, dry, normal turgor, no rashes or lesions noted CBC, BMP 10/30/18 05:30 10/30/18 05:30 Active Medications Docusate Sodium (Colace Liquid -) 100 mg PO DAILY PRN PRN Reason: CONSTIPATION Last Admin: 10/30/18 10:07 Dose: 100 mg Fentanyl (Sublimaze Injection -) 50 mcg IVPUSH [id number] PRN PRN Reason: PAIN-PACU ORDER X 4 DOSES ONLY Last Admin: 10/28/18 13:18 Dose: 50 mcg Hydromorphone HCl (Dilaudid Lyft Driver -) 10 mg [employer] PHU; Protocol Stop: 11/04/18 10:58 Last Admin: 10/30/18 03:35 Dose: 10 mg Lactated Ringer's (Lactated Ringers Solution) 1,000 mls @ 125 mls/hr IV ASDIR PHU Last Admin: 10/29/18 17:08 Dose: 125 mls/hr Lisinopril (Prinivil) 20 mg PO DAILY PHU Last Admin: 10/30/18 10:07 Dose: 20 mg Ondansetron HCl (Zofran Injection) 4 mg IVPUSH Q6H PRN PRN Reason: NAUSEA AND/OR VOMITING Ondansetron HCl (Zofran Injection) 4 mg IVPUSH Q4H PRN PRN Reason: NAUSEA AND/OR VOMITING Ondansetron HCl (Zofran Injection) 4 mg IVPUSH Q6H PRN PRN Reason: NAUSEA AND/OR VOMITING Promethazine HCl (Phenergan Injection -) 12.5 mg IVPB Q6H PRN PRN Reason: NAUSEA AND/OR VOMITING ASSESSMENT/PLAN: 58M with past medical history of hypertension and BPH presented to the ED for an elective back surgery for spinal stenosis s/p multiple L5-S1 spinal surgery admitted in ICU for post-op observation. #Spinal stenosis with radiculopathy s/p L5-S1 laminectomies and dissectomy- POD #1 -Output today: Casanova: 2100 ml; LYLE drain: -Patient doing well, pain well controlled with [employer]. Pt says he uses it every 15 min; Await anesthesia recs. -Continue IV LR @ 125 mls/hr -Zofran PRN for nausea (will order an EKG to check the qtc) -Completed Cefazolin 4 doses -PT; OOB to chair, had syncopal episode yesterday when returning to bed after sitting in chair -D/c casanova once OOB #Hypertension Cont home med: Continue lisinopril 20mg #FEN -IV LR @ 125 mls/hr -recheck lytes in AM, replete PRN -CLD, advance diet as tolerated #Prophylaxis For DVT: SCD/TEDs For GI: Not indicated #Code Status: Full Code #Dispo: Continue to monitor in ICU. Visit type - Emergency Visit Emergency Visit: Yes ED Registration Date: 10/28/18 Care time: The patient presented to the Emergency Department on the above date and was hospitalized for further evaluation of their emergent condition. - New Patient This patient is new to me today: Yes Date on this admission: 10/30/18 - Critical Care Critical Care patient: Yes Total Critical Care Time (in minutes): 35 Critical Care Statement: The care of this patient involved high complexity decision making to prevent further life threatening deterioration of the patient 's condition and/or to evaluate & treat vital organ system(s) failure or risk of failure.
[2018-10-30 11:44] VITALS: BMI 29.2
--- NOTE | 2018-10-30 12:01 | PN ---
Physical Exam: SUBJECTIVE: Patient seen and examined at bedside. POD #2. No overnight events. No new complaints. Pain well controlled. tolerating advanced diet. Denies CP,ABDALLA , SOB,palpitations, abdominal pain, nausea or vomiting. OBJECTIVE: Vital Signs Period Temp Pulse Resp BP Sys/Guevara Pulse Ox Last 24 Hr 98 F-99.9 F 65-92 12-18 92-118/56-83 94-95 General: Awake, alert, and fully oriented, in no acute distress Head: No signs of trauma Eyes: EOMI, sclera anicteric ENT: Dry mucus membranes Neck: Normal ROM, supple Lungs: Lungs clear, Normal breath sounds Cardio: Regular rhythm, S1 and S2 present Abdomen: Soft, nontender. No guarding, no rebound, no masses Extremities: Normal range of motion, Distal pulses present SKIN: Warm, Dry, normal turgor Neurologic: Cranial nerves II through XII grossly intact. Normal speech Laboratory Results - last 24 hr 10/30/18 10/30/18 05:30 05:30 WBC 13.9 H RBC 3.67 L Hgb 11.1 L Hct 32.9 L MCV 89.6 MCH 30.2 MCHC 33.7 RDW 12.1 Plt Count 140 MPV 9.6 Absolute Neuts (auto) 10.3 H Neutrophils % 74.1 Lymphocytes % 15.0 Monocytes % 9.9 Eosinophils % 0.5 Basophils % 0.5 Nucleated RBC % 0 Sodium 134 L Potassium 4.4 Chloride 99 Carbon Dioxide 31 Anion Gap 4 L BUN 12 Creatinine 0.9 Creat Clearance w eGFR > 60 Random Glucose 91 Calcium 8.0 L Magnesium 1.9 Active Medications Generic Name Dose Route Start Last Admin Trade Name Fransicoq PRN Reason Stop Dose Admin Docusate Sodium 100 mg 10/29/18 11:51 10/30/18 10:07 Colace Liquid - PO 100 mg DAILY PRN Administration CONSTIPATION Fentanyl 50 mcg 10/28/18 10:57 10/28/18 13:18 Sublimaze Injection - IVPUSH 50 mcg [id number] PRN Administration PAIN-PACU ORDER X 4 DOSES ONLY Hydromorphone HCl 10 mg 10/28/18 11:00 10/30/18 03:35 Dilaudid Airport Screener - AVIATION MEDICINE SPECIALIST 11/04/18 10:58 10 mg AVIATION MEDICINE SPECIALIST PHU Administration Protocol Lactated Ringer's 1,000 mls @ 125 mls/hr 10/28/18 12:30 10/29/18 17:08 Lactated Ringers Solution IV 125 mls/hr ASDIR PHU Administration Lisinopril 20 mg 10/29/18 10:00 10/30/18 10:07 Prinivil PO 20 mg DAILY PHU Administration Ondansetron HCl 4 mg 10/28/18 10:57 Zofran Injection IVPUSH Q6H PRN NAUSEA AND/OR VOMITING Ondansetron HCl 4 mg 10/28/18 10:58 Zofran Injection IVPUSH Q4H PRN NAUSEA AND/OR VOMITING Ondansetron HCl 4 mg 10/28/18 12:21 Zofran Injection IVPUSH Q6H PRN NAUSEA AND/OR VOMITING Promethazine HCl 12.5 mg 10/28/18 10:58 Phenergan Injection - IVPB Q6H PRN NAUSEA AND/OR VOMITING ASSESSMENT/PLAN: 58yo M with PMH of HTN and spinal stenosis, s/p L5 Cortes laminectomy, S1 laminotomy, L4 laminotomy, L5-S1 discectomy, L5-S1 PLIF, Insertion biomechanical device L5-S1, L5-S1 posterior arthrodesis, L5-S1 posterior instrumentation, Bone autograft, Bone allograft, Bone marrow aspiration, Stem cell autograft, Complex wound closure (10cm). Passed flatus once yesterday. Now POD #2. PLAN NEURO : * POD #2 * Neurovascular checks q4h per surgery * Drain in place - with serosanguinous drainage. * D/C'd casanova * PT consult-Will need short term rehab. * AVIATION MEDICINE SPECIALIST discontinued - Tylenol for pain 1-4 and Oxycodone for pain 5-10 CV * No repeat syncopal episode * History of HTN-will restart Lisinopril PRN PULM * Incentive spirometry * supplemental O2 PRN * maintain SpO2 >90% * BD TX PRN FEN * No fluids. * Follow electrolytes, replete as needed * Advanced to clear liquid diet PPX * VTE: SCDs * Bowel regimen: docusate #Disposition: Patient safe for transfer to the floor Visit type - Emergency Visit Emergency Visit: Yes ED Registration Date: 10/28/18 Care time: The patient presented to the Emergency Department on the above date and was hospitalized for further evaluation of their emergent condition. - New Patient This patient is new to me today: Yes Date on this admission: 10/30/18 - Critical Care Critical Care patient: Yes Total Critical Care Time (in minutes): 32 Critical Care Statement: The care of this patient involved high complexity decision making to prevent further life threatening deterioration of the patient 's condition and/or to evaluate & treat vital organ system(s) failure or risk of failure.
--- NOTE | 2018-10-30 12:07 | PN ---
Teaching Attending Note Name of Resident: Atul Lozano ATTENDING PHYSICIAN STATEMENT I saw and evaluated the patient. I reviewed the resident's note and discussed the case with the resident. I agree with the resident's findings and plan as documented. SUBJECTIVE: Pt seen and examined in the ICU. No further syncopal episodes. Pain relatively controlled. No nausea. OBJECTIVE: Vital Signs Period Temp Pulse Resp BP Sys/Guevara Pulse Ox Last 24 Hr 98 F-99.9 F 65-92 12-18 92-118/56-83 94-95 Intake & Output 10/27/18 10/28/18 10/29/18 10/30/18 23:59 23:59 23:59 23:59 Intake Total 4500 3505 Output Total 1050 1655 2100 Balance 3450 1850 -2100 Weight 96.706 kg 98.248 kg 97.976 kg Gen: NAD at rest Heart: RRR Lung: decreased breath sounds at the bases Abd: soft, nontender Ext: no edema Drain serosanguinous CBC, BMP 10/30/18 05:30 10/30/18 05:30 Active Medications Docusate Sodium (Colace Liquid -) 100 mg PO DAILY PRN PRN Reason: CONSTIPATION Last Admin: 10/30/18 10:07 Dose: 100 mg Fentanyl (Sublimaze Injection -) 50 mcg IVPUSH [id number] PRN PRN Reason: PAIN-PACU ORDER X 4 DOSES ONLY Last Admin: 10/28/18 13:18 Dose: 50 mcg Hydromorphone HCl (Dilaudid Dry Kiln Operator Helper -) 10 mg WELL DRILLER WELL DRILLER [facility]; Protocol Stop: 11/04/18 10:58 Last Admin: 10/30/18 03:35 Dose: 10 mg Lactated Ringer's (Lactated Ringers Solution) 1,000 mls @ 125 mls/hr IV ASDIR PHU Last Admin: 10/29/18 17:08 Dose: 125 mls/hr Lisinopril (Prinivil) 20 mg PO DAILY [facility] Last Admin: 10/30/18 10:07 Dose: 20 mg Ondansetron HCl (Zofran Injection) 4 mg IVPUSH Q6H PRN PRN Reason: NAUSEA AND/OR VOMITING Ondansetron HCl (Zofran Injection) 4 mg IVPUSH Q4H PRN PRN Reason: NAUSEA AND/OR VOMITING Ondansetron HCl (Zofran Injection) 4 mg IVPUSH Q6H PRN PRN Reason: NAUSEA AND/OR VOMITING Promethazine HCl (Phenergan Injection -) 12.5 mg IVPB Q6H PRN PRN Reason: NAUSEA AND/OR VOMITING ASSESSMENT AND PLAN: L5-S1 Spinal Stenosis with Radiculopathy and Neurogenic Claudication s/p L5 Laminectomy/L5-S1 Discectomy/PLIF/Biomechanical Device Insertion/ Instrumentation HTN Syncope likely Orthostatic - pain control - incentive spirometry - IVF - bowel regimen - d/c casanova - rehab/PT - DVT prophylaxis - can monitor on floor
[2018-10-30] MEDS ORDERED: oxyCODONE HCL 5 MG TABLET PO PRN (14:25)
[2018-10-30] MEDS: DOCUSATE SODIUM 100 MG CAPSULE (FP) PO SCH ×2 (14:46→21:00)
[2018-10-30] MEDS: oxyCODONE HCL 5 MG TABLET PO PRN ×2 (15:31→21:00)
--- NOTE | 2018-10-30 15:47 | PN ---
Teaching Attending Note Name of Resident: Caleb Salomon ATTENDING PHYSICIAN STATEMENT I saw and evaluated the patient. I reviewed the resident's note and discussed the case with the resident. I agree with the resident's findings and plan as documented. SUBJECTIVE: No fever or chills . No abd pain. has lower back pain and radiation to R lateral thigh OBJECTIVE: NAD CV : RRR Lungs: CTAB. decreased breath sounds at bases Ext : no edema\Lower back surgical dressing with drain Neuro pr LE : strength 4/5 in hip flexion b/l. 5/5 in knee flexion /extention , ankle dorsiflexiona nd plantar flexion b/l . reflexes 1+ knee jerk b/l . decreased sensation to light touch in R lateral thigh ASSESSMENT AND PLAN: 58 y/o man with h/o HTN, and spinal stenosis who presented for his surgery 1- L5-S1 spinal stenosis , s/p surgical procedure. - po pain meds - casanova out when ambulating - PT - incentive spirometer 2- HTN : cont lisinopril 3- DVT px when safe per sx
[2018-10-30] MEDS: ACETAMINOPHEN 325 MG TABLET (FP) PO PRN (17:33)
[2018-10-30] MEDS: LACTATED RINGERS SOLUTION 1,000 ML IV SCH (19:24)
[2018-10-31] MEDS: oxyCODONE HCL 5 MG TABLET PO PRN ×4 (02:34→22:30)
[2018-10-31] MEDS: DOCUSATE SODIUM 100 MG CAPSULE (FP) PO SCH ×3 (05:56→21:13)
[2018-10-31 06:24] LABS: BASO % 0.9 % (0-2.0); EOS % 1.7 % (0-4.5); HEMATOCRIT 33.3 % (35.4-49); HEMOGLOBIN 11.1 GM/dL (11.7-16.9); LYMPH % 17.2 % (8-40); MCHC 33.5 g/dl (32.0-35.9); MEAN CELL VOLUME 89.5 fl (80-96); MEAN PLT VOLUME 9.8 fl (7.5-11.1); MONO % 8.2 % (3.8-10.2); PLATELET COUNT 146 K/MM3 (134-434); RBC 3.72 M/mm3 (4.00-5.60); RDW 12.3 % (11.9-15.9); WHITE BLOOD COUNT 12.2 K/mm3 (4.0-10.0)
[2018-10-31 08:22] LABS: ALBUMIN 2.8 g/dl (3.4-5.0); ALK PHOS 65 U/L (45-117); ANION GAP 6 MMOL/L (8-16); BILIRUBIN,TOTAL 0.9 mg/dL (0.2-1); BLOOD UREA NITROGEN 14 mg/dL (7-18); CALCIUM 8.5 mg/dL (8.5-10.1); CHLORIDE 99 mmol/L (98-107); CO2 29 mmol/L (21-32); CREATININE 0.9 mg/dL (0.55-1.3); GLUCOSE,RANDOM 96 mg/dL (74-106); PHOSPHOROUS 2.6 mg/dL (2.5-4.9); POTASSIUM 3.9 mmol/L (3.5-5.1); SGOT/AST 35 U/L (15-37); SGPT/ALT 23 U/L (13-61); SODIUM 134 mmol/L (136-145)
--- NOTE | 2018-10-31 08:34 | PN ---
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
[2018-10-31] MEDS: LISINOPRIL 20 MG TABLET (FP) PO SCH ×2 (08:54→11:14)
--- NOTE | 2018-10-31 10:51 | PN ---
Teaching Attending Note Name of Resident: Rosie Tejeda ATTENDING PHYSICIAN STATEMENT I saw and evaluated the patient. I reviewed the resident's note and discussed the case with the resident. I agree with the resident's findings and plan as documented. SUBJECTIVE: Pt seen and examined in the ICU. Pain relatively controlled. +flatus but no BM yet. No fevers or chills. No further syncopal episodes. OBJECTIVE: Vital Signs Period Temp Pulse Resp BP Sys/Guevara Pulse Ox Last 24 Hr 98.8 F-100.3 F 72-104 10-20 104-126/77-93 87-94 Intake & Output 10/28/18 10/29/18 10/30/18 10/31/18 23:59 23:59 23:59 23:59 Intake Total 4500 3505 840 120 Output Total 1050 1655 4920 380 Balance 3450 1850 -4080 -260 Weight 96.706 kg 98.248 kg 97.976 kg 93.621 kg Gen: NAD at rest Heart: RRR Lung: decreased breath sounds at the bases Abd: soft, nontender Ext: no edema Drain with minimal drainage CBC, BMP 10/31/18 05:30 10/31/18 05:30 Active Medications Acetaminophen (Tylenol -) 650 mg PO Q4H PRN PRN Reason: PAIN LEVEL 1 - 3 Last Admin: 10/30/18 17:33 Dose: 650 mg Docusate Sodium (Colace -) 100 mg PO TID [facility] Last Admin: 10/31/18 05:56 Dose: 100 mg Lisinopril (Prinivil) 20 mg PO DAILY [facility] Last Admin: 10/31/18 08:54 Dose: 20 mg Ondansetron HCl (Zofran Injection) 4 mg IVPUSH Q6H PRN PRN Reason: NAUSEA AND/OR VOMITING Ondansetron HCl (Zofran Injection) 4 mg IVPUSH Q4H PRN PRN Reason: NAUSEA AND/OR VOMITING Ondansetron HCl (Zofran Injection) 4 mg IVPUSH Q6H PRN PRN Reason: NAUSEA AND/OR VOMITING Oxycodone HCl (Roxicodone -) 5 mg PO Q4H PRN PRN Reason: PAIN LEVEL 4 - 6 Oxycodone HCl (Roxicodone -) 10 mg PO Q4H PRN PRN Reason: PAIN LEVEL 7 - 10 Last Admin: 10/31/18 08:54 Dose: 10 mg Polyethylene Glycol (Miralax (For Daily Use) -) 17 gm PO DAILY [facility] Promethazine HCl (Phenergan Injection -) 12.5 mg IVPB Q6H PRN PRN Reason: NAUSEA AND/OR VOMITING ASSESSMENT AND PLAN: L5-S1 Spinal Stenosis with Radiculopathy and Neurogenic Claudication s/p L5 Laminectomy/L5-S1 Discectomy/PLIF/Biomechanical Device Insertion/ Instrumentation HTN Syncope likely Orthostatic - pain control - incentive spirometry - bowel regimen - rehab/PT - DVT prophylaxis - can monitor on floor - d/c planning
[2018-10-31] MEDS: ACETAMINOPHEN 325 MG TABLET (FP) PO PRN ×2 (11:16→22:30)
[2018-10-31] MEDS: POLYETHYLENE GLYCOL 3350 119 GM BTL PO SCH (11:20)
--- NOTE | 2018-10-31 11:26 | PN ---
Progress Note (short form) - Note Progress Note: SUBJECTIVE Patient seen and examined at the bedside. Since he is no longer on the DISC INSPECTOR pump , patient reports that he is unsure if his po meds will work. No acute complaints. Awaiting placement in short-term rehab facility. Reports passing a lot of flatus, but no bowel movement yet. OBJECTIVE Vital Signs Temperature 100.3 F H 10/31/18 10:00 Pulse Rate 104 H 10/31/18 10:00 Respiratory Rate 12 10/31/18 10:00 Blood Pressure 126/93 10/31/18 10:00 O2 Sat by Pulse Oximetry (%) 94 L 10/31/18 09:00 General: Awake, alert, and fully oriented, in no acute distress Head: No signs of trauma Eyes: EOMI, sclera anicteric ENT: Moist mucus membranes Neck: Normal ROM, supple Lungs: Lungs clear, Normal breath sounds Cardio: Regular rhythm, S1 and S2 present Abdomen: Soft, nontender. No guarding, no rebound, no masses Extremities: Normal range of motion, Distal pulses present SKIN: Warm, Dry, normal turgor Neurologic: Cranial nerves II through XII grossly intact. Normal speech ASSESSMENT 58yo M with PMH of HTN and spinal stenosis, s/p L5 Cortes laminectomy, S1 laminotomy, L4 laminotomy, L5-S1 discectomy, L5-S1 PLIF, Insertion biomechanical device L5-S1, L5-S1 posterior arthrodesis, L5-S1 posterior instrumentation, Bone autograft, Bone allograft, Bone marrow aspiration, Stem cell autograft, Complex wound closure (10cm). Now POD #3. PLAN POD #3 Neurovascular checks Monitor drain output PT consult-Weight bearing as tolerated Pain control with po tylenol and oxycodone q4h PRN CV Syncopal episode on 10/29/18, consistent with orthostatic hypotension History of HTN -on home lisinopril -no other episodes of syncope PULM Incentive spirometry FEN No standing fluids Follow electrolytes, replete as needed Advanced to low sodium diet PPX VTE: SCDs Bowel regimen: docusate, miralax #Disposition: Patient safe for transfer to the floor
--- NOTE | 2018-10-31 13:04 | PN ---
Teaching Attending Note Name of Resident: Audrey Rivero ATTENDING PHYSICIAN STATEMENT I saw and evaluated the patient. I reviewed the resident's note and discussed the case with the resident. I agree with the resident's findings and plan as documented. SUBJECTIVE: seen at 9 am No fever or hcills. back pain is controlled on Meds walked with PT, has no SOB . OBJECTIVE: NAD CV : RRR Lungs: CTAB. decreased breath sounds at L base Ext : no edema Lower back surgical dressing with drain ( minimal sanguinous drainage ) Neuro pr LE : strength 5/5 in hip flexion b/l. 5/5 in knee flexion /extention , ankle dorsiflexiona nd plantar flexion b/l . reflexes 1+ knee jerk b/l . Nl sensation to light touch ASSESSMENT AND PLAN: 58 y/o man with h/o HTN, and spinal stenosis who presented for his surgery 1- L5-S1 spinal stenosis , s/p surgical procedure. - po pain meds - PT - incentive spirometer - docusate for constipation - still has drain in 2- HTN: cont lisinopril 3- will d/w sx DVT px when drain is out, will send to rehab. will d/w Social work
--- NOTE | 2018-10-31 13:45 | PN ---
Physical Exam: SUBJECTIVE: Patient seen and examined at bedside. Complaining of R leg pain, but is getting out of bed. Denies chest pain, sob, abd pain. Voiding well. OBJECTIVE: Vital Signs Temperature 100.3 F H 10/31/18 10:00 Pulse Rate 79 10/31/18 12:00 Respiratory Rate 12 10/31/18 10:00 Blood Pressure 98/75 10/31/18 12:00 O2 Sat by Pulse Oximetry (%) 94 L 10/31/18 09:00 GENERAL: Middle aged male, lying in bed comfortably, is awake, alert, and fully oriented, in no acute distress. Facial symmetry noted. EYES: EOM Intact, no pallor or icterus. ENT: Ears normal, moist mucous membranes. NECK: Supple, no JVD LUNGS: B/L clear lungs, no added sounds. HEART: Regular rate and rhythm, S1, S2 without murmur. ABDOMEN: Soft, nontender, no organomegaly, BS +. EXTREMITIES: 2+ pulses, warm, well-perfused, no edema. BACK: Dressing applied over the surgical site, c/d/i, drain in place. NEUROLOGICAL: No facial droop. Normal speech. 5/5 muscle strength in b/l UE. 5/ 5 muscle strength in LLE, 4/5 muscle strength in RLE due to pain. SKIN: Warm, dry, normal turgor, no rashes or lesions noted CBCD WBC 12.2 K/mm3 (4.0-10.0) H 10/31/18 05:30 RBC 3.72 M/mm3 (4.00-5.60) L 10/31/18 05:30 Hgb 11.1 GM/dL (11.7-16.9) L 10/31/18 05:30 Hct 33.3 % (35.4-49) L 10/31/18 05:30 MCV 89.5 fl (80-96) 10/31/18 05:30 MCHC 33.5 g/dl (32.0-35.9) 10/31/18 05:30 RDW 12.3 % (11.9-15.9) 10/31/18 05:30 Plt Count 146 K/MM3 (134-434) 10/31/18 05:30 MPV 9.8 fl (7.5-11.1) 10/31/18 05:30 CMP Sodium 134 mmol/L (136-145) L 10/31/18 05:30 Potassium 3.9 mmol/L (3.5-5.1) 10/31/18 05:30 Chloride 99 mmol/L (98-107) 10/31/18 05:30 Carbon Dioxide 29 mmol/L (21-32) 10/31/18 05:30 Anion Gap 6 MMOL/L (8-16) L 10/31/18 05:30 BUN 14 mg/dL (7-18) 10/31/18 05:30 Creatinine 0.9 mg/dL (0.55-1.3) 10/31/18 05:30 Creat Clearance w eGFR > 60 (>60) 10/31/18 05:30 Calcium 8.5 mg/dL (8.5-10.1) 10/31/18 05:30 Total Bilirubin 0.9 mg/dL (0.2-1) 10/31/18 05:30 AST 35 U/L (15-37) 10/31/18 05:30 ALT 23 U/L (13-61) 10/31/18 05:30 Alkaline Phosphatase 65 U/L (45-117) 10/31/18 05:30 Total Protein 6.0 g/dl (6.4-8.2) L 10/31/18 05:30 Albumin 2.8 g/dl (3.4-5.0) L 10/31/18 05:30 Active Medications Acetaminophen (Tylenol -) 650 mg PO Q4H PRN PRN Reason: PAIN LEVEL 1 - 3 Last Admin: 10/31/18 11:16 Dose: 650 mg Docusate Sodium (Colace -) 100 mg PO TID [facility] Last Admin: 10/31/18 05:56 Dose: 100 mg Heparin Sodium (Porcine) (Heparin -) 5,000 unit SQ TID [facility] Lisinopril (Prinivil) 20 mg PO DAILY [facility] Last Admin: 10/31/18 11:14 Dose: Not Given Ondansetron HCl (Zofran Injection) 4 mg IVPUSH Q4H PRN PRN Reason: NAUSEA AND/OR VOMITING Ondansetron HCl (Zofran Injection) 4 mg IVPUSH Q6H PRN PRN Reason: NAUSEA AND/OR VOMITING Oxycodone HCl (Roxicodone -) 5 mg PO Q4H PRN PRN Reason: PAIN LEVEL 4 - 6 Oxycodone HCl (Roxicodone -) 10 mg PO Q4H PRN PRN Reason: PAIN LEVEL 7 - 10 Last Admin: 10/31/18 08:54 Dose: 10 mg Polyethylene Glycol (Miralax (For Daily Use) -) 17 gm PO DAILY [facility] Last Admin: 10/31/18 11:20 Dose: Not Given ASSESSMENT/PLAN: 58M with past medical history of hypertension and BPH presented to the ED for an elective back surgery for spinal stenosis s/p multiple L5-S1 spinal surgery admitted in ICU for post-op observation. #Spinal stenosis with radiculopathy s/p L5-S1 laminectomies and dissectomy- POD #3 -Continue IV LR @ 125 mls/hr -Zofran PRN for nausea -PT; OOB. Pt only out of bed, has not been able to ambulate yet. -Oxycodone 5 mg IVP Q4H, 10 mg Q4H for pain (CODING ANALYST was d/c'd) -Per ortho, OK to restart SQH. Drain may also be removed. #Hypertension Cont home med: Continue lisinopril 20mg #FEN -no IVf needed -recheck lytes in AM, replete PRN -Sodium-controlled diet #Prophylaxis For DVT: SQH #Code Status: Full Code #Dispo -transfer to med-surg - contacted regarding rehab placement; worker's comp will need to contact a rehab facility for placement. Visit type - Emergency Visit Emergency Visit: Yes ED Registration Date: 10/28/18 Care time: The patient presented to the Emergency Department on the above date and was hospitalized for further evaluation of their emergent condition. - New Patient This patient is new to me today: No - Critical Care Critical Care patient: No
[2018-10-31] MEDS: HEPARIN NA (PORCINE) 5,000 UNITS/ML 1ML VIAL SQ SCH ×2 (15:15→21:13)
[2018-10-31] MEDS ORDERED: PT OWN MED DRAWER 7, Y5N ONE (21:00)
[2018-11-01] MEDS: ACETAMINOPHEN 325 MG TABLET (FP) PO PRN (02:01)
[2018-11-01] MEDS: oxyCODONE HCL 5 MG TABLET PO PRN ×3 (02:01→17:14)
[2018-11-01 06:22] LABS: BASO % 0.5 % (0-2.0); HEMATOCRIT 31.3 % (35.4-49); HEMOGLOBIN 10.6 GM/dL (11.7-16.9); LYMPH % 27.8 % (8-40); MCHC 33.9 g/dl (32.0-35.9); MEAN CELL VOLUME 88.4 fl (80-96); MEAN PLT VOLUME 9.2 fl (7.5-11.1); MONO % 10.6 % (3.8-10.2); NEUT % 57.1 % (42.8-82.8); PLATELET COUNT 182 K/MM3 (134-434); RBC 3.54 M/mm3 (4.00-5.60); RDW 11.9 % (11.9-15.9); WHITE BLOOD COUNT 8.3 K/mm3 (4.0-10.0)
[2018-11-01] MEDS: HEPARIN NA (PORCINE) 5,000 UNITS/ML 1ML VIAL SQ SCH ×2 (06:50→17:14)
[2018-11-01] MEDS: DOCUSATE SODIUM 100 MG CAPSULE (FP) PO SCH ×2 (06:50→17:14)
[2018-11-01 07:01] LABS: ALBUMIN 2.6 g/dl (3.4-5.0); ALK PHOS 68 U/L (45-117); ANION GAP 6 MMOL/L (8-16); BILIRUBIN,TOTAL 0.6 mg/dL (0.2-1); BLOOD UREA NITROGEN 18 mg/dL (7-18); CALCIUM 8.5 mg/dL (8.5-10.1); CHLORIDE 100 mmol/L (98-107); CO2 30 mmol/L (21-32); CREATININE 1.1 mg/dL (0.55-1.3); GLUCOSE,RANDOM 95 mg/dL (74-106); MAGNESIUM 1.9 mg/dL (1.8-2.4); PHOSPHOROUS 4.3 mg/dL (2.5-4.9); POTASSIUM 3.9 mmol/L (3.5-5.1); SGOT/AST 36 U/L (15-37); SGPT/ALT 28 U/L (13-61); SODIUM 135 mmol/L (136-145); TOT PROT 5.9 g/dl (6.4-8.2)
[2018-11-01] MEDS: LISINOPRIL 20 MG TABLET (FP) PO SCH (10:19)
[2018-11-01] MEDS: POLYETHYLENE GLYCOL 3350 119 GM BTL PO SCH (10:25)
--- NOTE | 2018-11-01 12:06 | PN ---
Teaching Attending Note Name of Resident: Audrey Rivero ATTENDING PHYSICIAN STATEMENT I saw and evaluated the patient. I reviewed the resident's note and discussed the case with the resident. I agree with the resident's findings and plan as documented. SUBJECTIVE: No fever or chills . No abd pain. has lower back pain. was able to ambulated with PT yesterday. No BMs OBJECTIVE: NAD CV : RRR Lungs: CTAB. improved air flow of the L base Ext : no edema Lower back surgical dressing Neuro pr LE: strength 5/5 in hip flexion b/l. 5/5 in knee flexion / extension , ankle dorsiflexion and plantar flexion b/l . reflexes 2+ knee jerk b/l . Nl sensation to light touch ASSESSMENT AND PLAN: 58 y/o man with h/o HTN, and spinal stenosis who presented for his surgery 1- L5-S1 spinal stenosis , s/p surgical procedure. - s/p drain removal . - cont PT and pain management - bowel regimen for constipation - will contact Dr. Fowler for wound care instructions at dc 2- HTN: cont lisinopril dispo : Dc to rehab today. Fu with Dr. Fowler and PCP
--- NOTE | 2018-11-01 12:25 | PN ---
Teaching Attending Note Name of Resident: Rosie Tejeda ATTENDING PHYSICIAN STATEMENT I saw and evaluated the patient. I reviewed the resident's note and discussed the case with the resident. I agree with the resident's findings and plan as documented. SUBJECTIVE: Patient seen and examined in the ICU. Pain relatively well controlled. Flatus but no BM yet. OBJECTIVE: Intake & Output 10/29/18 10/30/18 10/31/18 11/01/18 23:59 23:59 23:59 23:59 Intake Total 3505 840 120 Output Total 1655 4920 380 600 Balance 1850 -4080 -260 -600 Weight 216 lb 9.6 oz 216 lb 206 lb 6.4 oz Last Vital Signs Temp Pulse Resp BP Pulse Ox 98.2 F 68 22 H 110/84 94 L 11/01/18 10:00 11/01/18 06:00 11/01/18 10:26 11/01/18 10:26 11/01/18 09:00 Active Medications Acetaminophen (Tylenol -) 650 mg PO Q4H PRN PRN Reason: PAIN LEVEL 1 - 3 Last Admin: 11/01/18 02:01 Dose: 650 mg Docusate Sodium (Colace -) 100 mg PO TID [facility] Last Admin: 11/01/18 06:50 Dose: 100 mg Heparin Sodium (Porcine) (Heparin -) 5,000 unit SQ TID [facility] Last Admin: 11/01/18 06:50 Dose: 5,000 unit Lisinopril (Prinivil) 20 mg PO DAILY [facility] Last Admin: 11/01/18 10:19 Dose: 20 mg Ondansetron HCl (Zofran Injection) 4 mg IVPUSH Q4H PRN PRN Reason: NAUSEA AND/OR VOMITING Ondansetron HCl (Zofran Injection) 4 mg IVPUSH Q6H PRN PRN Reason: NAUSEA AND/OR VOMITING Oxycodone HCl (Roxicodone -) 5 mg PO Q4H PRN PRN Reason: PAIN LEVEL 4 - 6 Oxycodone HCl (Roxicodone -) 10 mg PO Q4H PRN PRN Reason: PAIN LEVEL 7 - 10 Last Admin: 11/01/18 10:19 Dose: 10 mg Polyethylene Glycol (Miralax (For Daily Use) -) 17 gm PO DAILY [facility] Last Admin: 11/01/18 10:25 Dose: 17 grams Gen: NAD at rest Heart: RRR Lung: decreased breath sounds at the bases Abd: soft, nontender Ext: no edema Laboratory Results - last 24 hr 11/01/18 11/01/18 05:30 05:30 WBC 8.3 RBC 3.54 L Hgb 10.6 L Hct 31.3 L MCV 88.4 MCH 30.0 MCHC 33.9 RDW 11.9 Plt Count 182 D MPV 9.2 Absolute Neuts (auto) 4.7 Neutrophils % 57.1 D Lymphocytes % 27.8 D Monocytes % 10.6 H Eosinophils % 4.0 D Basophils % 0.5 Nucleated RBC % 0 Sodium 135 L Potassium 3.9 Chloride 100 Carbon Dioxide 30 Anion Gap 6 L BUN 18 Creatinine 1.1 Creat Clearance w eGFR > 60 Random Glucose 95 Calcium 8.5 Phosphorus 4.3 Magnesium 1.9 Total Bilirubin 0.6 AST 36 ALT 28 Alkaline Phosphatase 68 Total Protein 5.9 L Albumin 2.6 L ASSESSMENT AND PLAN: L5-S1 Spinal Stenosis with Radiculopathy and Neurogenic Claudication s/p L5 Laminectomy/L5-S1 Discectomy/PLIF/Biomechanical Device Insertion/ Instrumentation HTN Syncope likely Orthostatic - pain control - incentive spirometry - bowel regimen - rehab/PT - DVT prophylaxis - can monitor on floor - d/c planning Dr Neal
--- NOTE | 2018-11-01 14:19 | DS ---
Physical Exam: SUBJECTIVE: Patient seen and examined at bedside. No acute events overnight. OBJECTIVE: Vital Signs Period Temp Pulse Resp BP Sys/Guevara Pulse Ox Last 24 Hr 97.7 F-98.4 F 68-85 15-22 99-110/74-84 92-94 PHYSICAL EXAM GENERAL: Middle aged male, lying in bed comfortably, is awake, alert, and fully oriented, in no acute distress. Facial symmetry noted. EYES: EOM Intact, no pallor or icterus. ENT: Ears normal, moist mucous membranes. NECK: Supple, no JVD LUNGS: B/L clear lungs, no added sounds. HEART: Regular rate and rhythm, S1, S2 without murmur. ABDOMEN: Soft, nontender, no organomegaly, BS +. EXTREMITIES: 2+ pulses, warm, well-perfused, no edema. BACK: Dressing applied over the surgical site, c/d/i, drain in place. NEUROLOGICAL: No facial droop. Normal speech. 5/5 muscle strength in b/l UE. 5/ 5 muscle strength in LLE, 4/5 muscle strength in RLE due to pain. SKIN: Warm, dry, normal turgor, no rashes or lesions noted LABS Laboratory Results - last 24 hr 11/01/18 11/01/18 05:30 05:30 WBC 8.3 RBC 3.54 L Hgb 10.6 L Hct 31.3 L MCV 88.4 MCH 30.0 MCHC 33.9 RDW 11.9 Plt Count 182 D MPV 9.2 Absolute Neuts (auto) 4.7 Neutrophils % 57.1 D Lymphocytes % 27.8 D Monocytes % 10.6 H Eosinophils % 4.0 D Basophils % 0.5 Nucleated RBC % 0 Sodium 135 L Potassium 3.9 Chloride 100 Carbon Dioxide 30 Anion Gap 6 L BUN 18 Creatinine 1.1 Creat Clearance w eGFR > 60 Random Glucose 95 Calcium 8.5 Phosphorus 4.3 Magnesium 1.9 Total Bilirubin 0.6 AST 36 ALT 28 Alkaline Phosphatase 68 Total Protein 5.9 L Albumin 2.6 L HOSPITAL COURSE: Date of Admission:10/28/18 58M with past medical history of hypertension and BPH presented to the ED for an elective back surgery for spinal stenosis s/p multiple L5-S1 spinal surgery admitted in ICU for post-op observation. No complications noted liberty and post- op. Pt's pain was stabilized and underwent physical therapy. He was discharged to rehab facility to continue physical therapy and advised to follow up with his orthopedic surgeon for post-op visit as well as his PCP. Additionally, he was advised to avoid bending, heavy lifting, twisting for 6 months. Date of Discharge: 11/01/18 Minutes to complete discharge: 30 Discharge Summary Reason For Visit: SPONDYLOLISTHESIS LUMBAR Current Active Problems Spinal stenosis (Acute) Condition: Improved - Instructions Diet, Activity, Other Instructions: You were seen in the hospital for complaints of back pain. In the hospital, you underwent an elective lumbar spine surgery with no complications. You were closely monitored after surgery and seen by the physical therapist. You are being discharged to a rehab facility to continue physical therapy. Wound Instructions Keep the wound clean and dry, you should cover it with a dry gauze. Keep the yellow surgical dressing on until you see Dr. Fowler in 1 week. You can change the white dressing daily and keep it dry. No bending, lifting more than 5lbs, or twisting x 6 months. Keep physical therapy light (no vigorous PT) MEDICATION INSTRUCTIONS You may take oxycodone for pain, 5mg every 6 hours for pain. Please take the rest of your home medications as directed. REFERRALS Please follow up with your primary care physician within 1 week. Please follow up with your orthopedic surgeon, Dr[facility] Fowler [facility]08[facility]; call for appointment; . If you experience worsening back pain, mental status changes, progressively worsening weakness, numbness, or tingling in your extremities, chest pain, shortness of breath or other related symptoms, please proceed to your nearest emergency room immediately. Referrals: Nathan Fowler MD [Staff Physician] - 1 Week Disposition: HALF-WAY FACILITY - Home Medications Comprehensive Discharge Medication List: Ambulatory Orders Lisinopril 20 mg PO DAILY 08/23/17 Oxycodone HCl/Acetaminophen [Percocet 5-325 mg Tablet] 1 tab PO Q6H PRN #20 tablet MDD 4 08/31/17 Cyclobenzaprine HCl [Flexeril 10 mg] 10 mg PO DAILY 10/29/18 This patient is new to me today: No Emergency Visit: Yes ED Registration Date: 10/28/18 Care time: The patient presented to the Emergency Department on the above date and was hospitalized for further evaluation of their emergent condition. Critical Care patient: No - Discharge Referral Referred to [facility] Med P.C.: No
[2018-11-01] MEDS ORDERED: BISACODYL 10 MG SUPP.RECT RC ONE (14:42)
[2018-11-01] MEDS ORDERED: BISACODYL 5 MG TABLET.DR (FP) PO ONE (14:42)
--- NOTE | 2018-11-01 15:25 | PN ---
Progress Note (short form) - Note Progress Note: SUBJECTIVE Patient seen and examined at the bedside. Reports that his pain is adequately controlled. Awaiting placement in short-term rehab facility. Reports passing a lot of flatus, but no bowel movement yet. OBJECTIVE Vital Signs Temperature 98.2 F 11/01/18 10:00 Pulse Rate 68 11/01/18 06:00 Respiratory Rate 22 H 11/01/18 10:26 Blood Pressure 110/84 11/01/18 10:26 O2 Sat by Pulse Oximetry (%) 94 L 11/01/18 09:00 General: Awake, alert, and fully oriented, in no acute distress Head: No signs of trauma Eyes: EOMI, sclera anicteric ENT: Moist mucus membranes Neck: Normal ROM, supple Lungs: Lungs clear, Normal breath sounds Cardio: Regular rhythm, S1 and S2 present Abdomen: Soft, nontender. No guarding, no rebound, no masses Extremities: Normal range of motion, Distal pulses present SKIN: Warm, Dry, normal turgor Neurologic: Cranial nerves II through XII grossly intact. Normal speech ASSESSMENT 58yo M with PMH of HTN and spinal stenosis, s/p L5 Cortes laminectomy, S1 laminotomy, L4 laminotomy, L5-S1 discectomy, L5-S1 PLIF, Insertion biomechanical device L5-S1, L5-S1 posterior arthrodesis, L5-S1 posterior instrumentation, Bone autograft, Bone allograft, Bone marrow aspiration, Stem cell autograft, Complex wound closure (10cm). Now POD #4. PLAN POD #3 Neurovascular checks Drain removed this AM PT consult-Weight bearing as tolerated Pain control with po tylenol and oxycodone q4h PRN CV Syncopal episode on 10/29/18, consistent with orthostatic hypotension History of HTN -on home lisinopril -no other episodes of syncope PULM Incentive spirometry FEN No standing fluids Follow electrolytes, replete as needed Advanced to low sodium diet PPX VTE: SCDs Bowel regimen: docusate, miralax #Disposition: Patient safe for transfer to the floor
[2018-11-01 19:27] VITALS: TEMP 98.5
[2018-11-01 19:48] VITALS: BP 98/58; PULSE 90
== END 2018-11-01 20:52 | DRG 304 ==
LOC: JSAMEDAYSX 07:11 → JICU 12:38
PROVIDERS: ADMIT Orthopaedic Surgery Orthopaedic Surgery of the Spine; ATTEND Internal Medicine
PROC: 0ST40ZZ Resection of Lumbosacral Disc, Open Approach (ICD-10-PCS; 2018-10-28)
PROC: 4A1004G Monitoring of Central Nervous Electrical Activity, Intraoperative, Open Approach (ICD-10-PCS; 2018-10-28)
PROC: 07DR0ZZ Extraction of Iliac Bone Marrow, Open Approach (ICD-10-PCS; 2018-10-28)
PROC: B01BZZZ Fluoroscopy of Spinal Cord (ICD-10-PCS; 2018-10-28)
PROC: 0SG30AJ Fusion of Lumbosacral Joint with Interbody Fusion Device, Posterior Approach, Anterior Column, Open Approach (ICD-10-PCS; principal; 2018-10-28 08:00)
DX: M48.07 Spinal stenosis, lumbosacral region (principal); M51.17 Intervertebral disc disorders with radiculopathy, lumbosacral region; M43.06 Spondylolysis, lumbar region; E83.42 Hypomagnesemia; I10 Essential (primary) hypertension; N40.0 Benign prostatic hyperplasia without lower urinary tract symptoms; I95.1 Orthostatic hypotension; M53.2X7 Spinal instabilities, lumbosacral region
CPT/HCPCS: 36415; 76000-TC-FY; 80048; 80053; 83735; 84100; 85025; 85027; 86850; 86900; 86901; 88304-TC; 97116-GP; 97162-GP; J0131; J1644